=== PATIENT | female | born 1935 | race Caucasian/White ===

== ENCOUNTER 2016-10-17 17:42 | Observation (INO) | payer MEDICARE, OTHER ==
[~2016-10-17] VITALS: Ht 170.2 cm; Wt 93.0 kg
[~2016-10-17 17:42] MED LIST: LORT5TAB PO
[2016-10-17] MEDS ORDERED: MORPHINE SULFATE 4 MG/ML INJ IV PUSH ONE ×2 (17:45→19:30)
[2016-10-17] MEDS ORDERED: SODIUM CHLORIDE 0.9% FLUSH 5 ML FLUSH IVF PRN ×2 (17:45→22:00)
[2016-10-17] MEDS ORDERED: ONDANSETRON HCL 4 MG/2 ML VIAL IVP ONE (17:45)
[2016-10-17 17:56] VITALS: BP 155/74; PULSE 83; RESP 22; TEMP 97.7; O2SAT 98
--- NOTE | 2016-10-17 17:56 | PD ---
HPI Chief Complaint: chest pain Time Seen by Provider: 17:45 Travel History International Travel<30 days: No Contact w/Intl Traveler<30days: No Traveled to known affect area: No History of Present Illness HPI 81-year-old halfway patient from [facility], presents to the ER today because of left upper quadrant and left-sided chest pains that she states is currently a 10 out 10, started on its own at lunch today, radiates to the left flank area. She denies any nausea, shortness of breath, or any other symptoms. She does not know any exacerbating or alleviating factors. She has not been coughing, vomiting, or any other symptoms. She denies previous episodes. Modifying Factors: None Associated Signs & Symptoms: Left upper quadrant and left-sided chest pains Risk Factors: Elderly halfway patient PFSH Past Medical History Arthritis: Yes Asthma: Yes Anxiety: Yes Depression: Yes Cancer: Yes (Skin) Chest Pain: Yes Diminished Hearing: No GERD: Yes Headaches: Yes Hypertension: Yes Neurologic: Yes Parkinson's Disease: Yes Respiratory: Yes Seizures: Yes Past Surgical History Abdominal Surgery: Yes (Gall Bladder) Eye Surgery: Yes (Glaucoma) Hysterectomy: Yes Other Surgery: Yes (Hysterectomy, Gall Bladder) Social History Alcohol Use: No Tobacco Use: No Substance Use: No Allergies-Medications (Allergen,Severity, Reaction): Coded Allergies: Augmentin (Verified Allergy, Severe, nausea, 10/17/16) Demerol (Verified Allergy, Severe, 10/17/16) Keflex (Verified Allergy, Severe, 10/17/16) ANTIHISTAMINE DRUGS (Verified Allergy, Mild, 10/17/16) Muscle Relaxants (Verified Allergy, Mild, 10/17/16) Uncoded Allergies: CODIENE (Allergy, Severe, 03/04/07) MYOCINS (Allergy, Severe, 03/04/07) FLU SHOTS (Allergy, Mild, 03/04/07) Reported Meds & Prescriptions Reported Meds & Active Scripts Active Reported Nitrofurantoin Macrocrystal 100 Mg Cap 100 Mg PO DAILY Cymbalta DR (Duloxetine HCl) 20 Mg Capdr 20 Mg PO DAILY Cymbalta DR (Duloxetine HCl) 30 Mg Capdr 30 Mg PO DAILY Requip (Ropinirole HCl) 0.5 Mg Tab 0.5 Mg PO HS Gabapentin 600 Mg Tab 600 Mg PO HS Gabapentin 300 Mg Cap 300 Mg PO BID Sinemet (Carbidopa-Levodopa) 25-100 Mg Tab 3 Tab PO QID Colace (Docusate Sodium) 100 Mg Cap 100 Mg PO BID Aspirin DR (Aspirin) 81 Mg Tabdr 81 Mg PO DAILY Review of Systems ROS Limitations: Poor Historian Except as stated in HPI: all other systems reviewed are Neg Physical Exam Narrative GENERAL: Well-developed elderly white female patient who is awake, alert, not in acute distress. SKIN: Warm and dry. HEAD: Atraumatic. Normocephalic. EYES: Pupils equal and round. No scleral icterus. No injection or drainage. ENT: No nasal bleeding or discharge. Mucous membranes pink and moist. NECK: Trachea midline. No JVD. CARDIOVASCULAR: Regular rate and rhythm. No murmur appreciated. RESPIRATORY: No accessory muscle use. Clear to auscultation. Breath sounds equal bilaterally. GASTROINTESTINAL: Abdomen soft, left upper quadrant tenderness without guarding or rebound, nondistended. Hepatic and splenic margins not palpable. MUSCULOSKELETAL: No obvious deformities. No clubbing. No cyanosis. No edema. BACK: Left CVA tenderness. No rash. No point tenderness on palpation of the spine. NEUROLOGICAL: Awake and alert. No obvious cranial nerve deficits. Motor grossly within normal limits. Normal speech. PSYCHIATRIC: Appropriate mood and affect; insight and judgment normal. Data Data Last Documented VS Vital Signs Date Time Temp Pulse Resp B/P Pulse Ox O2 Delivery O2 Flow Rate FiO2 10/17/16 18:03 98 Room Air 10/17/16 17:56 97.7 83 22 155/74 Orders Complete Blood Count With Diff (10/17/16 17:45) Comprehensive Metabolic Panel (10/17/16 17:45) Lipase (10/17/16 17:45) Prothrombin Time / Inr (Pt) (10/17/16 17:45) Act Partial Throm Time (Ptt) (10/17/16 17:45) Urinalysis - C+S If Indicated (10/17/16 17:45) Ct Abd/Pel W Iv Contrast(Rout) (10/17/16 17:45) Iv Access Insert/Monitor (10/17/16 17:45) Ecg Monitoring (10/17/16 17:45) Oximetry (10/17/16 17:45) Morphine Inj (Morphine Inj) (10/17/16 17:45) Ondansetron Inj (Zofran Inj) (10/17/16 17:45) Sodium Chloride 0.9% Flush (Ns Flush) (10/17/16 17:45) Electrocardiogram (10/17/16 17:45) Chest, Single Ap (10/17/16 17:45) Hydromorphone Pf Inj (Dilaudid Pf Inj) (10/17/16 19:15) Labs Laboratory Tests Test 10/17/16 18:09 White Blood Count 9.2 TH/MM3 Red Blood Count 4.17 MIL/MM3 Hemoglobin 11.4 GM/DL Hematocrit 35.7 % Mean Corpuscular Volume 85.6 FL Mean Corpuscular Hemoglobin 27.4 PG Mean Corpuscular Hemoglobin 32.0 % Concent Red Cell Distribution Width 14.7 % Platelet Count 381 TH/MM3 Mean Platelet Volume 7.2 FL Neutrophils (%) (Auto) 62.1 % Lymphocytes (%) (Auto) 26.5 % Monocytes (%) (Auto) 6.6 % Eosinophils (%) (Auto) 3.7 % Basophils (%) (Auto) 1.1 % Neutrophils # (Auto) 5.7 TH/MM3 Lymphocytes # (Auto) 2.4 TH/MM3 Monocytes # (Auto) 0.6 TH/MM3 Eosinophils # (Auto) 0.3 TH/MM3 Basophils # (Auto) 0.1 TH/MM3 CBC Comment DIFF FINAL Differential Comment Prothrombin Time 10.3 SEC Prothromb Time International 0.9 RATIO Ratio Activated Partial 25.7 SEC Thromboplast Time Sodium Level 146 MEQ/L Potassium Level 3.3 MEQ/L Chloride Level 108 MEQ/L Carbon Dioxide Level 28.9 MEQ/L Anion Gap 9 MEQ/L Blood Urea Nitrogen 10 MG/DL Creatinine 0.54 MG/DL Estimat Glomerular Filtration 109 ML/MIN Rate Random Glucose 97 MG/DL Calcium Level 8.1 MG/DL Total Bilirubin LESS THAN 0.1 MG/DL Aspartate Amino Transf 13 U/L (AST/SGOT) Alanine Aminotransferase 7 U/L (ALT/SGPT) Alkaline Phosphatase 57 U/L Total Protein 6.0 GM/DL Albumin 3.0 GM/DL Lipase 77 U/L [facility] Medical Decision Making Medical Screen Exam Complete: Yes Emergency Medical Condition: Yes Medical Record Reviewed: Yes Interpretation(s) Laboratory Tests Test 10/17/16 18:09 Hemoglobin 11.4 GM/DL (11.6-15.3) Sodium Level 146 MEQ/L (136-145) Potassium Level 3.3 MEQ/L (3.5-5.1) Chloride Level 108 MEQ/L (98-107) Calcium Level 8.1 MG/DL (8.5-10.1) Total Bilirubin LESS THAN 0.1 MG/DL (0.2-1.0) Aspartate Amino Transf 13 U/L (15-37) (AST/SGOT) Alanine Aminotransferase 7 U/L (10-53) (ALT/SGPT) Total Protein 6.0 GM/DL (6.4-8.2) Albumin 3.0 GM/DL (3.4-5.0) Last 24 hours Impressions Chest X-Ray 10/17/16 2666 Signed Impressions: Service Date/Time: October 18:20 - CONCLUSION: Trace bibasilar atelectasis. Elevated right hemidiaphragm, by report long-term unchanged. No free air seen in the upper abdomen. Carlton Roldan MD Differential Diagnosis Left upper quadrant left-sided chest painspancreatitis versus ACS versus renal colic versus pyelonephritis versus other acute intra-abdominal processes Narrative Course Lab work and CAT scans ordered for the patient for further evaluation. Patient was given pain medications for left upper quadrant abdominal pains. Initial lab work did not indicate any signs of sepsis. Lab work done indicate significant metabolic processes. Chest x-ray did not show acute pulmonary processes. Physician Communication Physician Communication Case is signed out to Dr. Jean at 7 PM awaiting CAT scans. Diagnosis Primary Impression: CHEST PAIN, UNSPECIFIED Admitting Information Admitting Physician Requests: Admit Karen Leyva MD Oct 17, 2016 17:55
[2016-10-17 18:03] VITALS: O2SAT 98
[2016-10-17 18:16] LABS: AUTOMATED NEUTROPHIL # 5.7 TH/MM3 (1.8-7.7); BASOPHIL # 0.1 TH/MM3 (0-0.2); BASOPHIL % 1.1 % (0.0-2.0); EOSINOPHIL # 0.3 TH/MM3 (0-0.4); EOSINOPHIL % 3.7 % (0.0-4.0); HEMATOCRIT 35.7 % (35.0-46.0); HEMO FLAGS DIFF FINAL; LYMPH % 26.5 % (9.0-44.0); LYMPHOCYTE # 2.4 TH/MM3 (1.0-4.8); MEAN CELL VOLUME 85.6 FL (80.0-100.0); MEAN CORPUSCULAR HEMOGLOBIN 27.4 PG (27.0-34.0); MONO % 6.6 % (0.0-8.0); NEUT % 62.1 % (16.0-70.0); PLATELET COUNT 381 TH/MM3 (150-450); RED BLOOD COUNT 4.17 MIL/MM3 (4.00-5.30); RED CELL DISTRIBUTION WIDTH 14.7 % (11.6-17.2); WHITE BLOOD COUNT 9.2 TH/MM3 (4.0-11.0)
[2016-10-17 18:27] LABS: APTT (PATIENT) 25.7 SEC (24.3-30.1); INTERNATIONAL NORMALIZED RATIO 0.9 RATIO; PROTHROMBIN TIME - PATIENT 10.3 SEC (9.8-11.6)
[2016-10-17 18:48] LABS: ALT (GPT) 7 U/L (10-53); ANION GAP 9 MEQ/L (5-15); AST (GOT) 13 U/L (15-37); BICARBONATE 28.9 MEQ/L (21.0-32.0); BLOOD UREA NITROGEN 10 MG/DL (7-18); CHLORIDE 108 MEQ/L (98-107); GLOMERULAR FILTRATION RATE 109 ML/MIN (>89); POTASSIUM 3.3 MEQ/L (3.5-5.1); SODIUM (NA) 146 MEQ/L (136-145)
[2016-10-17 18:50] LABS: ALKALINE PHOSPHATASE 57 U/L (45-117); TOTAL BILIRUBIN ADULT LESS THAN 0.1 MG/DL (0.2-1.0)
--- NOTE | 2016-10-17 18:59 | RADRPT ---
EXAM DATE/TIME: 10/17/2016 18:20 [facility] COMPARISON: No previous studies available for comparison. INDICATIONS : Free air. MEDICAL HISTORY : None. SURGICAL HISTORY : None. ENCOUNTER: Initial ACUITY: 1 day PAIN SCORE: 0/10 LOCATION: Bilateral chest FINDINGS: Trace atelectasis seen at the bases. Elevation of the right hemidiaphragm, reported on the outside fa cility chest x-ray from 2008. No pleural effusion seen. No pneumothorax. Heart size within normal limits. No free air seen in the upper abdomen. CONCLUSION: Trace bibasilar atelectasis. Elevated right hemidiaphragm, by report long-term unchanged. No free air seen in the upper abdomen. Carlton Roldan MD on October 17, 2016 at 18:56 Board Certified Radiologist. This report was verified electronically.
[2016-10-17] MEDS ORDERED: SINE25TA PO (19:10)
[2016-10-17] MEDS ORDERED: ASPI81TA67 PO (19:10)
[2016-10-17] MEDS ORDERED: CYMB30CA PO (19:10)
[2016-10-17] MEDS ORDERED: DULO20 PO (19:10)
[2016-10-17] MEDS ORDERED: ROPI.5 PO (19:10)
[2016-10-17] MEDS ORDERED: COLA100C3 PO ×2 (19:10→19:27)
[2016-10-17] MEDS ORDERED: GABA300C5 PO (19:10)
[2016-10-17] MEDS ORDERED: GABA600T PO (19:10)
[2016-10-17] MEDS ORDERED: NITR1CAP36 PO (19:12)
[2016-10-17] MEDS ORDERED: HYDROmorphone HCL PF 1 MG/ML VIAL IV PUSH ONE (19:15)
[2016-10-17] MEDS ORDERED: PROM25TA5 PO (19:24)
[2016-10-17] MEDS ORDERED: VENTAER INH (19:24)
[2016-10-17] MEDS ORDERED: OMEP40CA2 PO (19:24)
[2016-10-17] MEDS ORDERED: MAPA325T PO (19:24)
[2016-10-17] MEDS ORDERED: MECL1TAB42 PO (19:24)
[2016-10-17] MEDS ORDERED: CHLO1.4S2 MT (19:24)
[2016-10-17] MEDS ORDERED: ALPR.5 PO ×2 (19:24)
[2016-10-17] MEDS ORDERED: LEVE500 PO (19:24)
[2016-10-17] MEDS ORDERED: DULC10SU3 RECTAL (19:24)
[2016-10-17] MEDS ORDERED: MILKSUS PO (19:24)
[2016-10-17] MEDS ORDERED: GUAI100S10 PO (19:24)
[2016-10-17] MEDS ORDERED: XANA1TAB2 PO (19:24)
[2016-10-17] MEDS ORDERED: LOPE2TAB3 PO (19:27)
[2016-10-17] MEDS ORDERED: IPRASOL INH (19:27)
[2016-10-17] MEDS ORDERED: BENA25TA3 PO (19:27)
[2016-10-17] MEDS ORDERED: IOHEXOL 350 MG/ML 10 ML VIAL (for RAD DIAG) IV ONE (19:36)
--- NOTE | 2016-10-17 19:57 | RADRPT ---
EXAM DATE/TIME: 10/17/2016 19:27 [facility] COMPARISON: CHEST SINGLE AP, October 17, 2016, 18:20. INDICATIONS : Left sided chest and abdomen pain. IV CONTRAST: 100 cc Omnipaque 350 (iohexol) IV RADIATION DOSE: 25.26 CTDIvol (mGy) MEDICAL HISTORY : Hypertension. Parkinsons. SURGICAL HISTORY : Hysterectomy. Cholecystectomy. ENCOUNTER: Initial ACUITY: 1 day PAIN SCALE: 8/10 LOCATION: Left chest and abdomen TECHNIQUE: Volumetric scanning was performed using a multi-row detector CT scanner. The data was post processed with a variety of visualization algorithms including full volume maximum intensity projection, multi -planar sliding thin slab reformation, curved planar reformation, and surface rendering techniques. Using automated exposure control and adjustment of the mA and/or kV according to patient size, radiat ion dose was kept as low as reasonably achievable to obtain optimal diagnostic quality images. FINDINGS: Thoracic and abdominal portions of the aorta are non-aneurysmal. No dissection. There is atherosclero tic plaque, mainly mid and distal abdominal portion. No acute abnormality seen of the heart or mediastinum. There is coronary artery calcification. There is elevation of the right hemidiaphragm, mentioned on prior studies back to least 2008. There i s trace atelectasis at the right lung base. No pneumonia seen. No pleural effusion or pneumothorax. CONCLUSION: No acute abnormality of the aorta. No acute cardiopulmonary disease demonstrated. Chronic elevation o f the right hemidiaphragm with trace right base atelectasis. Coronary artery calcification. Carlton webster MD on October 17, 2016 at 19:53 Board Certified Radiologist. This report was verified electronically.
[2016-10-17 20:24] VITALS: BP 153/68; PULSE 69; RESP 12; O2SAT 99
--- NOTE | 2016-10-17 20:30 | PD ---
Physical Exam Date Seen by Provider: Oct 17, 2016 Data Data Last Documented VS Vital Signs Date Time Temp Pulse Resp B/P Pulse Ox O2 Delivery O2 Flow Rate FiO2 10/17/16 20:24 69 12 153/68 99 2 10/17/16 18:03 Room Air 10/17/16 17:56 97.7 Orders Complete Blood Count With Diff (10/17/16 17:45) Comprehensive Metabolic Panel (10/17/16 17:45) Lipase (10/17/16 17:45) Prothrombin Time / Inr (Pt) (10/17/16 17:45) Act Partial Throm Time (Ptt) (10/17/16 17:45) Urinalysis - C+S If Indicated (10/17/16 17:45) Iv Access Insert/Monitor (10/17/16 17:45) Ecg Monitoring (10/17/16 17:45) Oximetry (10/17/16 17:45) Morphine Inj (Morphine Inj) (10/17/16 17:45) Ondansetron Inj (Zofran Inj) (10/17/16 17:45) Sodium Chloride 0.9% Flush (Ns Flush) (10/17/16 17:45) Electrocardiogram (10/17/16 17:45) Chest, Single Ap (10/17/16 17:45) Hydromorphone Pf Inj (Dilaudid Pf Inj) (10/17/16 19:15) Ckmb (Isoenzyme) Profile (10/17/16 19:20) Troponin I (10/17/16 19:20) Morphine Inj (Morphine Inj) (10/17/16 19:30) Cta Thor Abd Aorta W Iv C W3d (10/17/16 19:20) Iohexol 350 Inj (Omnipaque 350 Inj) (10/17/16 19:36) ^ Straight Catheter (10/17/16 20:29) Labs Laboratory Tests Test 10/17/16 18:09 White Blood Count 9.2 TH/MM3 Red Blood Count 4.17 MIL/MM3 Hemoglobin 11.4 GM/DL Hematocrit 35.7 % Mean Corpuscular Volume 85.6 FL Mean Corpuscular Hemoglobin 27.4 PG Mean Corpuscular Hemoglobin 32.0 % Concent Red Cell Distribution Width 14.7 % Platelet Count 381 TH/MM3 Mean Platelet Volume 7.2 FL Neutrophils (%) (Auto) 62.1 % Lymphocytes (%) (Auto) 26.5 % Monocytes (%) (Auto) 6.6 % Eosinophils (%) (Auto) 3.7 % Basophils (%) (Auto) 1.1 % Neutrophils # (Auto) 5.7 TH/MM3 Lymphocytes # (Auto) 2.4 TH/MM3 Monocytes # (Auto) 0.6 TH/MM3 Eosinophils # (Auto) 0.3 TH/MM3 Basophils # (Auto) 0.1 TH/MM3 CBC Comment DIFF FINAL Differential Comment Prothrombin Time 10.3 SEC Prothromb Time International 0.9 RATIO Ratio Activated Partial 25.7 SEC Thromboplast Time Sodium Level 146 MEQ/L Potassium Level 3.3 MEQ/L Chloride Level 108 MEQ/L Carbon Dioxide Level 28.9 MEQ/L Anion Gap 9 MEQ/L Blood Urea Nitrogen 10 MG/DL Creatinine 0.54 MG/DL Estimat Glomerular Filtration 109 ML/MIN Rate Random Glucose 97 MG/DL Calcium Level 8.1 MG/DL Total Bilirubin LESS THAN 0.1 MG/DL Aspartate Amino Transf 13 U/L (AST/SGOT) Alanine Aminotransferase 7 U/L (ALT/SGPT) Alkaline Phosphatase 57 U/L Total Creatine Kinase 37 U/L Troponin I 0.03 NG/ML Total Protein 6.0 GM/DL Albumin 3.0 GM/DL Lipase 77 U/L [facility] Medical Record Reviewed: Yes Supervised Visit with LIZET: No Interpretation(s) EKG: NSR at 84bpm, qt/qtc: 372/413, no acute st or t wave changes Vital Signs Date Time Temp Pulse Resp B/P Pulse Ox O2 Delivery O2 Flow Rate FiO2 10/17/16 18:03 98 Room Air 10/17/16 17:56 97.7 83 22 155/74 98 Laboratory Tests Test 10/17/16 18:09 White Blood Count 9.2 TH/MM3 (4.0-11.0) Red Blood Count 4.17 MIL/MM3 (4.00-5.30) Hemoglobin 11.4 GM/DL (11.6-15.3) Hematocrit 35.7 % (35.0-46.0) Mean Corpuscular Volume 85.6 FL (80.0-100.0) Mean Corpuscular Hemoglobin 27.4 PG (27.0-34.0) Mean Corpuscular Hemoglobin 32.0 % Concent (32.0-36.0) Red Cell Distribution Width 14.7 % (11.6-17.2) Platelet Count 381 TH/MM3 (150-450) Mean Platelet Volume 7.2 FL (7.0-11.0) Neutrophils (%) (Auto) 62.1 % (16.0-70.0) Lymphocytes (%) (Auto) 26.5 % (9.0-44.0) Monocytes (%) (Auto) 6.6 % (0.0-8.0) Eosinophils (%) (Auto) 3.7 % (0.0-4.0) Basophils (%) (Auto) 1.1 % (0.0-2.0) Neutrophils # (Auto) 5.7 TH/MM3 (1.8-7.7) Lymphocytes # (Auto) 2.4 TH/MM3 (1.0-4.8) Monocytes # (Auto) 0.6 TH/MM3 (0-0.9) Eosinophils # (Auto) 0.3 TH/MM3 (0-0.4) Basophils # (Auto) 0.1 TH/MM3 (0-0.2) CBC Comment DIFF FINAL Differential Comment Prothrombin Time 10.3 SEC (9.8-11.6) Prothromb Time International 0.9 RATIO Ratio Activated Partial 25.7 SEC Thromboplast Time (24.3-30.1) Sodium Level 146 MEQ/L (136-145) Potassium Level 3.3 MEQ/L (3.5-5.1) Chloride Level 108 MEQ/L (98-107) Carbon Dioxide Level 28.9 MEQ/L (21.0-32.0) Anion Gap 9 MEQ/L (5-15) Blood Urea Nitrogen 10 MG/DL (7-18) Creatinine 0.54 MG/DL (0.50-1.00) Estimat Glomerular Filtration 109 ML/MIN Rate (>89) Random Glucose 97 MG/DL (74-106) Calcium Level 8.1 MG/DL (8.5-10.1) Total Bilirubin LESS THAN 0.1 MG/DL (0.2-1.0) Aspartate Amino Transf 13 U/L (15-37) (AST/SGOT) Alanine Aminotransferase 7 U/L (10-53) (ALT/SGPT) Alkaline Phosphatase 57 U/L (45-117) Total Creatine Kinase 37 U/L (26-192) Troponin I 0.03 NG/ML (0.02-0.05) Total Protein 6.0 GM/DL (6.4-8.2) Albumin 3.0 GM/DL (3.4-5.0) Lipase 77 U/L (73-393) Last Impressions Aorta CTA 10/17/16 1920 Signed Impressions: Service Date/Time: October 19:27 - CONCLUSION: No acute abnormality of the aorta. No acute cardiopulmonary disease demonstrated. Chronic elevation of the right hemidiaphragm with trace right base atelectasis. Coronary artery calcification. Carlton Roldan MD Chest X-Ray 10/17/16 4396 Signed Impressions: Service Date/Time: , October 17, 2016 18:20 - CONCLUSION: Trace bibasilar atelectasis. Elevated right hemidiaphragm, by report long-term unchanged. No free air seen in the upper abdomen. Carlton Roldan MD Differential Diagnosis acs, arrhythmia, cholecystitis, aortic dissection, gastroenteritis, gastritis, pyelonephritis Narrative Course Please see previous providers chart Patient is an 81-year-old female with hx of dementia, htn, gerd who presents to emergency room from group home for evaluation of chest pain. As per patient, she began to have increased left upper abdomen pain as well as chest pain which radiates to her back. Reports that the pain began around lunchtime today. Patient is unable to describe her pain at this time, patient is holding her left flank. Patient with no fevers or chills, no other complaints at this time. Patient with no nausea or vomiting. cbc: wbc 9.2 hgb: 11.4 hct: 35.7 plt: 381 bmp: sodium 146 potassium 3.3 bun 10 cr 0.54 chloride: 108 trop 0.03 total ck 37 lipase: 77 chest xray: trace bibasilar atelectasis, elevated right hemidiaphragm, no acute changes cta: No acute abnormality of aorta UA: pending Patient re-evaluated, patient comfortable at this time. Diagnosis Primary Impression: CHEST PAIN, UNSPECIFIED Admitting Information Admitting Physician Requests: Observation Juana Jean DO Oct 17, 2016 20:30
[2016-10-17 21:23] LABS: BLOOD, URINE NEG (NEG); COMMENT (UR) CULT NOT INDICATED; CULTURE IF INDICATED CULT NOT INDICATED; GLUCOSE,URINE NEG (NEG); KETONE, URINE NEG (NEG); MUCUS URINE FEW /lpf (OCC); NITRITE,URINE NEG (NEG); PH, URINE 6.5 (5.0-8.5); SQUAMOUS EPITHELIAL CELL URINE <1 /hpf (0-5); URINE COLOR YELLOW (YELLW/STRAW)
[2016-10-17] MEDS ORDERED: POTASSIUM CHLORIDE 25 MEQ EFFERVESCENT TAB PO ONE (21:30)
[2016-10-17 23:21] VITALS: BP 160/71; PULSE 65; RESP 13; O2SAT 98
[2016-10-18 01:10] VITALS: PULSE 72
[2016-10-18 04:38] VITALS: BP 142/67; PULSE 103; RESP 18; TEMP 97.8; O2SAT 97
[2016-10-18 07:59] VITALS: O2SAT 95
[2016-10-18 08:37] VITALS: BP 160/83; PULSE 77; RESP 16; TEMP 97.8; O2SAT 93
[2016-10-18] MEDS ORDERED: SODIUM CHLORIDE 0.9% FLUSH 5 ML FLUSH IVF SCH (09:00)
--- NOTE | 2016-10-18 10:07 | MB ---
cc: ADONIS WIN MD DATE OF CONSULTATION: 10/18/2016 CHIEF COMPLAINT Chest pain. HISTORY OF PRESENT ILLNESS Fernanda Romero is an 81-year-old female patient of mine who resides at [facility]. She has had a generalized decline over the past year. She has had some significant behaviors at the nursing facility including throwing herself on the ground per the nursing staff and recurrent somatic complaints. Yesterday I was called by the nurse at the facility for acute onset of chest pain. The nurse had given her two nitroglycerin and was calling to report that she appeared very ill. Nitroglycerin did not relieve the chest pain and she states that the pain was radiating into her left arm. She felt weak and was tremulous and the patient was complaining of shortness of breath. I asked the nurse to send the patient to the [facility] and for them to call me. The patient was seen in the [facility]. I was called for consultation. The patient is in obvious distress. She is shaking and is complaining of weakness and left side chest pain. She becomes tearful upon questioning her. LABORATORY DATA Hemoglobin 11.7, CBC otherwise normal. Potassium 3.3, sodium 146. LFTs are normal. INR 0.9. Urinalysis shows protein, specific gravity greater than 1.05, rare yeast. ALLERGIES 1. AUGMENTIN. 2. DEMEROL. 3. KEFLEX. 4. ANTIHISTAMINES. 5. MUSCLE RELAXANTS. 6. CODEINE. 7. MYCINS. 8. FLU SHOTS MEDICATIONS Home medications are: 1. Macrobid. 2. Cymbalta. 3. Requip. 4. Gabapentin. 5. Sinemet. 6. Colace. 7. Aspirin 81 mg daily. PAST MEDICAL HISTORY 1. Asthma. 2. Anxiety. 3. Depression. 4. Hypertension. 5. Parkinson's. 6. Seizures. 7. Headaches. 8. Personality disorder NOS. PAST SURGICAL HISTORY 1. Cholecystectomy. 2. Glaucoma surgery. 3. Hysterectomy. SOCIAL HISTORY No alcohol, tobacco or illicit drug usage. She resides in long-term care at the [facility]. FAMILY HISTORY She reports her father with cardiac disease and mother with dementia. She is a questionable historian. REVIEW OF SYSTEMS Weakness, tremors, chest pain, nausea, abdominal pain coughing. Negative 14-point review of systems otherwise. IMAGING DATA Aortic CTA: No acute abnormality. Right hemidiaphragm elevation. Coronary artery calcification. Chest x-ray shows atelectasis. PHYSICAL EXAMINATION VITAL SIGNS: Temperature 97.8, pulse 103, respirations 18, blood pressure 160/83, pulse ox 93%. ASSESSMENT 1. Chest pain. 2. Abdominal pain. 3. Parkinson's. 4. Hypokalemia. 5. Hypernatremia. 6. Dehydration. 7. Hypertension. 8. Asthma. 9. Atelectasis. PLAN 1. Observation admission to the chest pain unit. Cardiac enzymes are negative x3. Cardiology is going to be seeing the patient. 2. Half normal saline with potassium IV fluids. 3. NPO. 4. Telemetry. 5. The patient appears to be clear to go back to the [facility] facility. It appears that her abdominal pain is actually due to the atelectasis in the left base. There are initial crackles on deep respirations that quickly clear with deep breathing. The patient has a history of somatoform issues and is always voicing not wanting to have much aggressive care. 6. Will leave the disposition up to cardiology. Adonis Win MD RP/CHRIS /9:33 AM /9:45 AM
[2016-10-18 10:19] VITALS: PULSE 70
--- NOTE | 2016-10-18 11:41 | HHI.DCPOC ---
Discharge Care Plan Diagnosis: (1) Chest pain, atypical Goals to Promote Your Health * To prevent worsening of your condition and complications * To maintain your health at the optimal level Directions to Meet Your Goals Take your medications as prescribed Follow your dietary instruction Follow activity as directed Keep your appointments as scheduled Take your immunizations and boosters as scheduled If your symptoms worsen call your PCP, if no PCP go to Urgent Care Center or Emergency Room Smoking is Dangerous to Your Health. Avoid second hand smoke Call the 24-hour hour crisis hotline for domestic abuse at Shaun Paz Oct 18, 2016 11:41
[2016-10-18] MEDS ORDERED: ALPRAZolam 0.5 MG TAB PO PRN (11:45)
[2016-10-18] MEDS ORDERED: MECLIZINE HCL 25 MG TAB PO PRN (11:45)
--- NOTE | 2016-10-18 11:54 | HHI.HP ---
[facility] Primary Care Physician Adonis Verdin MD Chief Complaint Chest pain History of Present Illness This is an 81-year-old female that presents to the ED from [facility] with a complaint of discomfort in her chest. When she states that she points to her epigastric region. She really does not know how long the lasted but states he came in waves and was sharp. He was short of breath and states she is chronically short of breath. No nausea or diaphoresis. She cannot recall history of heart disease but states that her memory is not that good and that her healthcare surrogates. Review of Systems General: Patient denies fevers, chills recent, and recent travel HEENT: Patient denies headache, sore throat, difficulty swallowing. Cardiovascular: Has the chest discomfort as mentioned above. Denies sensation of heart beating rapidly or irregularly. No syncope. Denies diaphoresis. Respiratory: Patient is chronically short of breath and has notany difference recently. Denies inspirational chest discomfort. Patient states she has a chronic cough. This has been nonproductive. GI: Patient denies nausea, vomiting, diarrhea, abdominal pain, bloody stools. Musculoskeletal: Patient denies joint pain or edema. Denies calf pain or edema. Neurovascular: Patient denies numbness, tingling, weakness in extremities. Denies headache. Endocrine: Denies polyuria and polydipsia. Hematologic: Denies easy bruising. Skin: Denies rash or itching. Past Family Social History Allergies: Coded Allergies: Augmentin (Verified Allergy, Severe, nausea, 10/17/16) Demerol (Verified Allergy, Severe, 10/17/16) Keflex (Verified Allergy, Severe, 10/17/16) ANTIHISTAMINE DRUGS (Verified Allergy, Mild, 10/17/16) Muscle Relaxants (Verified Allergy, Mild, 10/17/16) Uncoded Allergies: CODIENE (Allergy, Severe, 03/04/07) MYOCINS (Allergy, Severe, 03/04/07) FLU SHOTS (Allergy, Mild, 03/04/07) Past Medical History Hypertension, hyperlipidemia, GERD, vertigo, Parkinson's disease, memory loss. Past Surgical History Hysterectomy, cholecystectomy. Reported Medications Reported Meds & Active Scripts Active Reported Duoneb (Ipratropium-Albuterol Neb) 0.5-2.5 Mg/3 Ml Neb 1 Nebule INH Q6HR NEB PRN Benadryl Allergy (Diphenhydramine HCl) 25 Mg Tab 25 Mg PO Q6H PRN Loperamide (Loperamide HCl) 2 Mg Tab 2 Mg PO Q4HR PRN One tablet after each loose stool. Not to exceed 8 tablets per day. Colace (Docusate Sodium) 100 Mg Cap 100 Mg PO BID PRN Ventolin Hfa 18 GM Inh (Albuterol Sulfate) 90 Mcg/Act Aer 2 Puff INH Q4HR PRN Phenergan (Promethazine HCl) 25 Mg Tab 25 Mg PO Q6H PRN Meclizine 25 (Meclizine HCl) 25 Mg Tab 25 Mg PO Q6HR PRN Guaifenesin 100 Mg/5 Ml Syp 100 Mg PO Q4HR PRN Xanax (Alprazolam) 0.5 Mg Tab 0.5 Mg PO Q6H PRN Chloraseptic (Phenol (Antiseptic)) 1.4 % Spr 2 [place] Q2HR PRN Mapap (Acetaminophen) 325 Mg Tab 650 Mg PO Q4HR PRN Dulcolax Supp (Bisacodyl) 10 Mg Supp 10 Mg RECTAL HS PRN Milk of Magnesia Liq (Magnesium Hydroxide) 400 Mg/5 Ml Susp 30 Ml PO HS PRN Xanax (Alprazolam) 1 Mg Tab 1 Mg PO HS Xanax (Alprazolam) 0.5 Mg Tab 0.5 Mg PO BID Omeprazole 40 Mg Cap 40 Mg PO DAILY@1600 Keppra (Levetiracetam) 500 Mg Tab 500 Mg PO BID Nitrofurantoin Macrocrystal 100 Mg Cap 100 Mg PO DAILY Cymbalta DR (Duloxetine HCl) 20 Mg Capdr 20 Mg PO DAILY Cymbalta DR (Duloxetine HCl) 30 Mg Capdr 30 Mg PO DAILY Requip (Ropinirole HCl) 0.5 Mg Tab 0.5 Mg PO HS Gabapentin 600 Mg Tab 600 Mg PO HS Gabapentin 300 Mg Cap 300 Mg PO BID Sinemet (Carbidopa-Levodopa) 25-100 Mg Tab 3 Tab PO QID Colace (Docusate Sodium) 100 Mg Cap 100 Mg PO BID Aspirin DR (Aspirin) 81 Mg Tabdr 81 Mg PO DAILY Active Ordered Medications Current Medications Medications (Trade) Dose Ordered Sig/Akila Route Start Time Stop Time Status Last Admin (NS Flush) 2 ml UNSCH PRN IVF 10/17/16 17:45 (NS Flush) 2 ml UNSCH PRN IVF 10/17/16 22:00 (NS Flush) 2 ml BID IVF 10/18/16 09:00 10/18/16 09:59 (Xanax) 0.5 mg Q6H PRN PO 10/18/16 11:45 UNV (Xanax) 1 mg HS PO 10/18/16 21:00 UNV (Ecotrin Ec) 81 mg DAILY PO 10/19/16 09:00 UNV (Sinemet 25-100 Mg) 3 tab QID PO 10/18/16 13:00 UNV (Cymbalta Dr) 20 mg DAILY PO 10/19/16 09:00 UNV (Cymbalta Dr) 30 mg DAILY PO 10/19/16 09:00 UNV (Neurontin) 300 mg BID PO 10/18/16 21:00 UNV (Neurontin) 600 mg HS PO 10/18/16 21:00 UNV (Keppra) 500 mg BID PO 10/18/16 21:00 UNV (Antivert) 25 mg Q6HR PRN PO 10/18/16 11:45 UNV (Requip) 0.5 mg HS PO 10/18/16 21:00 UNV Non-Formulary Medication 40 mg DAILY@1600 PO 10/18/16 16:00 UNV Family History She is not aware of her family medical history. Social History Patient does not smoke, drink alcohol, or use illicit drugs. She lives at [facility]. Physical Exam Vital Signs Vital Signs Date Time Temp Pulse Resp B/P Pulse Ox O2 Delivery O2 Flow Rate FiO2 10/18/16 10:19 70 10/18/16 08:37 97.8 77 16 160/83 93 10/18/16 07:59 95 Nasal Cannula 2.00 10/18/16 04:38 97.8 103 18 142/67 97 10/18/16 01:10 72 10/17/16 23:21 65 13 160/71 98 2 10/17/16 20:24 69 12 153/68 99 2 10/17/16 18:03 98 Room Air 10/17/16 17:56 97.7 83 22 155/74 98 Physical Exam GENERAL: This is a well-nourished, well-developed patient, in no apparent distress. Patient speaks in clear complete sentences. Patient is pleasant. HEENT: Head is atraumatic and normocephalic. Neck is supple without lymphadenopathy and trachea is midline. No JVD or carotid bruits. CARDIOVASCULAR: Regular rate and rhythm without murmurs, gallops, or rubs. RESPIRATORY: There is tender some palpating along the inferior aspect of the sternum as well as left lateral chest wall. Clear to auscultation. Breath sounds equal bilaterally. No wheezes, rales, or rhonchi. No use of accessory muscles. GASTROINTESTINAL: Abdomen is nontender, nondistended. Abdomen soft. No obvious pulsatile mass or bruit. No CVA tenderness. Strong femoral pulses bilaterally. Normal bowel sounds in all quadrants. MUSCULOSKELETAL: Patient is moving upper and lower extremities freely. No calf tenderness or edema, no Homans sign. Strong pulses in upper and lower extremities. NEUROLOGICAL: Patient is alert and oriented. Cranial nerves 2-12 are grossly intact. No focal deficits and speech is clear. SKIN: No rash and turgor is normal. Laboratory Laboratory Tests Test 10/17/16 10/17/16 10/17/16 10/18/16 18:09 21:00 22:15 00:15 White Blood Count 9.2 Red Blood Count 4.17 Hemoglobin 11.4 Hematocrit 35.7 Mean Corpuscular Volume 85.6 Mean Corpuscular Hemoglobin 27.4 Mean Corpuscular Hemoglobin 32.0 Concent Red Cell Distribution Width 14.7 Platelet Count 381 Mean Platelet Volume 7.2 Neutrophils (%) (Auto) 62.1 Lymphocytes (%) (Auto) 26.5 Monocytes (%) (Auto) 6.6 Eosinophils (%) (Auto) 3.7 Basophils (%) (Auto) 1.1 Neutrophils # (Auto) 5.7 Lymphocytes # (Auto) 2.4 Monocytes # (Auto) 0.6 Eosinophils # (Auto) 0.3 Basophils # (Auto) 0.1 CBC Comment DIFF FINAL Differential Comment Prothrombin Time 10.3 Prothromb Time International 0.9 Ratio Activated Partial 25.7 Thromboplast Time Sodium Level 146 Potassium Level 3.3 Chloride Level 108 Carbon Dioxide Level 28.9 Anion Gap 9 Blood Urea Nitrogen 10 Creatinine 0.54 Estimat Glomerular Filtration 109 Rate Random Glucose 97 Calcium Level 8.1 Total Bilirubin LESS THAN 0.1 Aspartate Amino Transf 13 (AST/SGOT) Alanine Aminotransferase 7 (ALT/SGPT) Alkaline Phosphatase 57 Total Creatine Kinase 37 36 37 Troponin I 0.03 0.03 0.03 Total Protein 6.0 Albumin 3.0 Lipase 77 Urine Color YELLOW Urine Turbidity CLEAR Urine pH 6.5 Urine Specific [place] GREATER THAN 1.050 Urine Protein 30 Urine Glucose (UA) NEG Urine Ketones NEG Urine Occult Blood NEG Urine Nitrite NEG Urine Bilirubin NEG Urine Urobilinogen LESS THAN 2.0 Urine Leukocyte Esterase NEG Urine RBC 1 Urine WBC 3 Urine Squamous Epithelial <1 Cells Urine Mucus FEW Urine Yeast (Budding) RARE Microscopic Urinalysis Comment CULT NOT INDICATED Result Diagram: 10/17/16 1809 10/17/16 180 Imaging Last 48 hours Impressions Aorta CTA 10/17/16 192 Signed Impressions: Service Date/Time: October 19:27 - CONCLUSION: No acute abnormality of the aorta. No acute cardiopulmonary disease demonstrated. Chronic elevation of the right hemidiaphragm with trace right base atelectasis. Coronary artery calcification. Carltno Roldan MD Chest X-Ray 10/17/16 1880 Signed Impressions: Service Date/Time: October 18:20 - CONCLUSION: Trace bibasilar atelectasis. Elevated right hemidiaphragm, by report long-term unchanged. No free air seen in the upper abdomen. Carlton Roldan MD Course EKGs have sinus rhythm without significant ST segment depressions or elevations. Assessment and Plan Assessment and Plan * Atypical chest pain: Patient had serial cardiac enzymes and EKGs for ruling out purposes. She was evaluated by Dr. Turner cardiology and the chest and center. Her symptoms are atypical in nature. Dr. milian discuss this with the patient and her 2 daughters. The be no further cardiac workup at this time. She should follow-up with her primary care physician. * Hypokalemia: Patient was given potassium supplementation. Shaun Paz Oct 18, 2016 11:54
[2016-10-18] MEDS ORDERED: CARBIDOPA/LEVODOPA 25 MG/100 MG TAB PO SCH (13:00)
--- NOTE | 2016-10-18 14:21 | EKG ---
Date Performed: 10/18/2016 Time Performed: 04:30:55 PTAGE: 81 years EKG: Sinus rhythm NORMAL ECG PREVIOUS TRACING : 10/17/2016 23.51 Since previous tracing, no significant change noted DOCTOR: Adonis Turner Interpretating Date/Time 10/18/2016 14:18:48
--- NOTE | 2016-10-18 14:23 | EKG ---
Date Performed: 10/17/2016 Time Performed: 23:51:19 PTAGE: 81 years EKG: Sinus rhythm LOW QRS VOLTAGE IN PRECORDIAL LEADS BORDERLINE ECG PREVIOUS TRACING : 10/17/2016 22.20 DOCTOR: Adonis Turner Interpretating Date/Time 10/18/2016 14:22:35
--- NOTE | 2016-10-18 14:23 | EKG ---
Date Performed: 10/17/2016 Time Performed: 22:20:12 PTAGE: 81 years EKG: Sinus rhythm NORMAL ECG PREVIOUS TRACING : 10/17/2016 17.53 Since previous tracing, no significant change noted DOCTOR: Adonis Turner Interpretating Date/Time 10/18/2016 14:22:55
--- NOTE | 2016-10-18 14:26 | EKG ---
Date Performed: 10/17/2016 Time Performed: 17:53:04 PTAGE: 81 years EKG: Sinus rhythm NORMAL ECG PREVIOUS TRACING : 02/22/2009 17.16 Since previous tracing, no significant change noted DOCTOR: Adonis Turner Interpretating Date/Time 10/18/2016 14:25:51
[2016-10-18] MEDS ORDERED: NON-FORMULARY DRUG (Omeprazole 40 MG) PO SCH (16:00)
[2016-10-18] MEDS ORDERED: GABAPENTIN 300 MG CAP PO SCH ×2 (21:00)
[2016-10-18] MEDS ORDERED: ALPRAZolam 1 MG TAB PO SCH (21:00)
[2016-10-18] MEDS ORDERED: levETIRAcetam 500 MG TAB PO SCH (21:00)
[2016-10-19] MEDS ORDERED: DULoxetine HCl DR 20 MG CAP PO SCH (09:00)
[2016-10-19] MEDS ORDERED: ASPIRIN EC 81 MG TABEC PO SCH (09:00)
[2016-10-19] MEDS ORDERED: DULoxetine HCl DR 30 MG CAP PO SCH (09:00)
== END 2016-10-18 12:16 | disposition home or self-care (01) ==
LOC: NEPC 17:42 → NEDA 21:30 → NEPHCDU 23:30
PROVIDERS: ADMIT Internal Medicine Interventional Cardiology; ATTEND Internal Medicine Interventional Cardiology
DX: R07.89 Other chest pain (principal); E87.6 Hypokalemia; M19.90 Unspecified osteoarthritis, unspecified site; J45.909 Unspecified asthma, uncomplicated; F32.9 Major depressive disorder, single episode, unspecified; F41.9 Anxiety disorder, unspecified; Z85.828 Personal history of other malignant neoplasm of skin; K21.9 Gastro-esophageal reflux disease without esophagitis; G20 Parkinson's disease; I10 Essential (primary) hypertension; Z79.82 Long term (current) use of aspirin; Z79.51 Long term (current) use of inhaled steroids; Z88.1 Allergy status to other antibiotic agents; Z88.8 Allergy status to other drugs, medicaments and biological substances; Z88.7 Allergy status to serum and vaccine; Z88.5 Allergy status to narcotic agent
CPT/HCPCS: 71010; 71275; 74174; 80053; 81001; 82550; 83690; 84484; 85025; 85610; 85730; 93005; 96374; 96375; 99285; G0378; J1170; J2270; J2405; Q9967

== ENCOUNTER 2016-10-21 13:30 | Inpatient (IN) | payer MEDICARE, OTHER ==
[~2016-10-21] VITALS: Ht 160 cm; Wt 88.9 kg
[~2016-10-21 13:30] MED LIST changes: +ALPR.5 PO; +ASPI81TA67 PO; +BENA25TA3 PO; +CHLO1.4S2 MT; +COLA100C3 PO; +CYMB30CA PO; +DULC10SU3 RECTAL; +DULO20 PO; +GABA300C5 PO; +GABA600T PO; +GUAI100S10 PO; +IPRASOL INH; +LEVE500 PO; +LOPE2TAB3 PO; -LORT5TAB PO; +MAPA325T PO; +MECL1TAB42 PO; +MILKSUS PO; +NITR1CAP36 PO; +OMEP40CA2 PO; +PROM25TA5 PO; +ROPI.5 PO; +SINE25TA PO; +VENTAER INH; +XANA1TAB2 PO
[2016-10-21 16:35] VITALS: BP 151/72; PULSE 86; RESP 16; TEMP 98; O2SAT 97
[2016-10-21 16:55] LABS: AUTOMATED NEUTROPHIL # 5.1 TH/MM3 (1.8-7.7); BASOPHIL # 0.1 TH/MM3 (0-0.2); EOSINOPHIL # 0.3 TH/MM3 (0-0.4); HEMATOCRIT 39.6 % (35.0-46.0); HEMO FLAGS DIFF FINAL; LYMPH % 29.2 % (9.0-44.0); LYMPHOCYTE # 2.5 TH/MM3 (1.0-4.8); MEAN CORPUSCULAR HEMOGLOBIN 27.4 PG (27.0-34.0); MEAN CORPUSCULAR HGB CONC 32.3 % (32.0-36.0); MONO % 7.1 % (0.0-8.0); NEUT % 58.7 % (16.0-70.0); PLATELET COUNT 454 TH/MM3 (150-450); RED BLOOD COUNT 4.66 MIL/MM3 (4.00-5.30); RED CELL DISTRIBUTION WIDTH 14.5 % (11.6-17.2); WHITE BLOOD COUNT 8.7 TH/MM3 (4.0-11.0)
--- NOTE | 2016-10-21 16:56 | RADRPT ---
EXAM DATE/TIME: 10/21/2016 16:33 [facility] COMPARISON: CHEST SINGLE AP, October 17, 2016, 18:20. INDICATIONS : Chest pain. MEDICAL HISTORY : Hypercholesterolemia. Hypertension. Parkinsons. Asthma. SURGICAL HISTORY : Cardiac cath. Hysterectomy. Cholecystectomy ENCOUNTER: Initial ACUITY: 2 days PAIN SCORE: 5/10 LOCATION: Bilateral chest FINDINGS: A single view of the chest demonstrates stable elevation of right hemidiaphragm with minimal bibasila r atelectatic changes. This actually show some interval improvement on the left. No confluent infiltr ate or effusion. Heart size is normal. Degenerative spurring of the dorsal spine. CONCLUSION: 1. Stable elevation of the right hemidiaphragm with minimal bibasilar atelectatic changes. 2. No confluent infiltrate. Hermelindo Espitia MD on October 21, 2016 at 16:53 Board Certified Radiologist. This report was verified electronically.
--- NOTE | 2016-10-21 17:02 | RADRPT ---
EXAM DATE/TIME: 10/21/2016 16:49 [facility] COMPARISON: No previous studies available for comparison. INDICATIONS : Altered mental status. RADIATION DOSE: 40.53 CTDIvol (mGy) MEDICAL HISTORY : Stroke. Parkinsons. Seizures. SURGICAL HISTORY : None. ENCOUNTER: Initial ACUITY: 1 day PAIN SCALE: Non-responsive LOCATION: cranial TECHNIQUE: Multiple contiguous axial images were obtained of the head. Using automated exposure control and adj ustment of the mA and/or kV according to patient size, radiation dose was kept as low as reasonably a chievable to obtain optimal diagnostic quality images. FINDINGS: CEREBRUM: The ventricles are normal for age. No evidence of midline shift, mass lesion, hemorrhage or acute in farction. No extra-axial fluid collections are seen. POSTERIOR FOSSA: The cerebellum and brainstem are intact. The 4th ventricle is midline. The cerebellopontine angle i s unremarkable. EXTRACRANIAL: The visualized portion of the orbits is intact. SKULL: The calvaria is intact. No evidence of skull fracture. CONCLUSION: No acute intracranial process. Hermelindo Espitia MD on October 21, 2016 at 16:59 Board Certified Radiologist. This report was verified electronically.
[2016-10-21 17:11] LABS: ALT (GPT) 7 U/L (10-53); ANION GAP 10 MEQ/L (5-15); AST (GOT) 19 U/L (15-37); BICARBONATE 25.6 MEQ/L (21.0-32.0); BLOOD UREA NITROGEN 8 MG/DL (7-18); CHLORIDE 108 MEQ/L (98-107); GLOMERULAR FILTRATION RATE 93 ML/MIN (>89); POTASSIUM 3.4 MEQ/L (3.5-5.1); SODIUM (NA) 144 MEQ/L (136-145)
[2016-10-21 17:12] LABS: ALKALINE PHOSPHATASE 66 U/L (45-117); TOTAL BILIRUBIN ADULT 0.5 MG/DL (0.2-1.0)
[2016-10-21] MEDS ORDERED: LORazepam 2 MG/ML VIAL IV PUSH ONE ×2 (17:15→19:00)
--- NOTE | 2016-10-21 17:33 | PD ---
HPI Chief Complaint: Psychiatric Symptoms Time Seen by Provider: 17:27 Travel History International Travel<30 days: No Contact w/Intl Traveler<30days: No Traveled to known affect area: No History of Present Illness HPI 81-year-old female that presents to the ED for evaluation of psych. Patient has a history of dementia and behavioral issues secondary to this. Patient apparently lives at an assisted living facility and they Paul acted her because of her increasing agitation. Apparently patient is aggressive towards staff and acting more psychotic. Patient is a poor historian doesn't really provide much information. She was here just a couple days ago for chest pain and had a workup that showed no sign of acute disease. Per my evaluation patient denies any complaint other than possible recent fall and hit her head. She cannot really tell me when this happened. Again she is not a good historian. Denies any suicidal or homicidal ideation. Per records patient apparently was making threats to her life. Again history is limited secondary to the patient's mental status. PFSH Past Medical History Hx Anticoagulant Therapy: Yes (BABY ASPIRIN DAILY ) Arthritis: Yes Asthma: Yes Anxiety: Yes Depression: Yes Cancer: Yes (Skin) Cardiac Catheterization: Yes Cardiovascular Problems: Yes High Cholesterol: Yes Chest Pain: Yes Cerebrovascular Accident: Yes (TIA) Diabetes: No Diminished Hearing: No Gastrointestinal Disorders: No GERD: Yes Headaches: Yes Heparin Induced Thrombocytopen: No Hypertension: Yes Neurologic: Yes Parkinson's Disease: Yes Respiratory: Yes Immunizations Current: Yes Seizures: Yes Tetanus Vaccination: > 5 Years Influenza Vaccination: No Past Surgical History Abdominal Surgery: Yes (Gall Bladder) Eye Surgery: Yes (Glaucoma) Hysterectomy: Yes Other Surgery: Yes (Hysterectomy, Gall Bladder) Social History Alcohol Use: No Tobacco Use: No Substance Use: No Allergies-Medications (Allergen,Severity, Reaction): Coded Allergies: Augmentin (Verified Allergy, Severe, nausea, 10/21/16) Demerol (Verified Allergy, Severe, 10/21/16) Keflex (Verified Allergy, Severe, 10/21/16) ANTIHISTAMINE DRUGS (Verified Allergy, Mild, 10/21/16) Muscle Relaxants (Verified Allergy, Mild, 10/21/16) Uncoded Allergies: CODIENE (Allergy, Severe, 03/04/07) MYOCINS (Allergy, Severe, 03/04/07) FLU SHOTS (Allergy, Mild, 03/04/07) Reported Meds & Prescriptions Reported Meds & Active Scripts Active Reported Duoneb (Ipratropium-Albuterol Neb) 0.5-2.5 Mg/3 Ml Neb 1 Nebule INH Q6HR NEB PRN Benadryl Allergy (Diphenhydramine HCl) 25 Mg Tab 25 Mg PO Q6H PRN Loperamide (Loperamide HCl) 2 Mg Tab 2 Mg PO Q4HR PRN One tablet after each loose stool. Not to exceed 8 tablets per day. Ventolin Hfa 18 GM Inh (Albuterol Sulfate) 90 Mcg/Act Aer 2 Puff INH Q4HR PRN Phenergan (Promethazine HCl) 25 Mg Tab 25 Mg PO Q6H PRN Meclizine 25 (Meclizine HCl) 25 Mg Tab 25 Mg PO Q6HR PRN Guaifenesin 100 Mg/5 Ml Syp 100 Mg PO Q4HR PRN Xanax (Alprazolam) 0.5 Mg Tab 0.5 Mg PO Q6H PRN Chloraseptic (Phenol (Antiseptic)) 1.4 % Spr 2 [place] MT Q2HR PRN Mapap (Acetaminophen) 325 Mg Tab 650 Mg PO Q4HR PRN Dulcolax Supp (Bisacodyl) 10 Mg Supp 10 Mg RECTAL HS PRN Milk of Magnesia Liq (Magnesium Hydroxide) 400 Mg/5 Ml Susp 30 Ml PO HS PRN Xanax (Alprazolam) 1 Mg Tab 1 Mg PO HS Xanax (Alprazolam) 0.5 Mg Tab 0.5 Mg PO BID Omeprazole 40 Mg Cap 40 Mg PO DAILY@1600 Keppra (Levetiracetam) 500 Mg Tab 500 Mg PO BID Nitrofurantoin Macrocrystal 100 Mg Cap 100 Mg PO DAILY Cymbalta DR (Duloxetine HCl) 20 Mg Capdr 20 Mg PO DAILY Cymbalta DR (Duloxetine HCl) 30 Mg Capdr 30 Mg PO DAILY Requip (Ropinirole HCl) 0.5 Mg Tab 0.5 Mg PO HS Gabapentin 600 Mg Tab 600 Mg PO HS Gabapentin 300 Mg Cap 300 Mg PO BID Sinemet (Carbidopa-Levodopa) 25-100 Mg Tab 3 Tab PO QID Colace (Docusate Sodium) 100 Mg Cap 100 Mg PO BID Aspirin DR (Aspirin) 81 Mg Tabdr 81 Mg PO DAILY Review of Systems ROS Limitations: Poor Historian Except as stated in HPI: all other systems reviewed are Neg Physical Exam Narrative GENERAL: SKIN: Warm and dry. HEAD: Atraumatic. Normocephalic. EYES: Pupils equal and round. No scleral icterus. No injection or drainage. ENT: No nasal bleeding or discharge. Mucous membranes pink and moist. Tongue is midline. No uvula deviation. NECK: Trachea midline. No JVD. CARDIOVASCULAR: Regular rate and rhythm. No murmurs, S3, S4. RESPIRATORY: No accessory muscle use. Clear to auscultation. Breath sounds equal bilaterally. GASTROINTESTINAL: Abdomen soft, non-tender, nondistended. Hepatic and splenic margins not palpable. MUSCULOSKELETAL: Extremities without clubbing, cyanosis, or edema. No obvious deformities. Full range of motion of the upper and lower extremities bilaterally. 2+ pulses bilaterally. NEUROLOGICAL: Awake and alert. No obvious cranial nerve deficits. Motor grossly within normal limits. Five out of 5 muscle strength in the arms and legs. Normal speech. PSYCHIATRIC: Demented and anxious mood and affect; insight and judgment not present at this time Data Data Last Documented VS Vital Signs Date Time Temp Pulse Resp B/P Pulse Ox O2 Delivery O2 Flow Rate FiO2 10/21/16 16:35 98.0 86 16 151/72 97 Orders Complete Blood Count With Diff (10/21/16 16:18) Comprehensive Metabolic Panel (10/21/16 16:18) Urinalysis - C+S If Indicated (10/21/16 16:18) Psych Screen (10/21/16 16:18) Ct Brain W/O Iv Contrast(Rout) (10/21/16 ) Chest, Single Ap (10/21/16 ) Cath For Specimen (10/21/16 17:15) Lorazepam Inj (Ativan Inj) (10/21/16 17:15) ^ Sitter (10/21/16 18:01) Haloperidol Inj (Haldol Inj) (10/21/16 18:15) Restraints Non-Violent ADOLFO.Q3H (10/21/16 18:39) Lorazepam Inj (Ativan Inj) (10/21/16 19:00) Urine Culture (10/21/16 19:10) Ciprofloxacin 200 Mg Premix (Cipro 200 M (10/21/16 19:45) Admit Order (Ed Use Only) (10/21/16 19:40) Labs Laboratory Tests Test 10/21/16 10/21/16 16:35 19:10 White Blood Count 8.7 TH/MM3 Red Blood Count 4.66 MIL/MM3 Hemoglobin 12.8 GM/DL Hematocrit 39.6 % Mean Corpuscular Volume 85.0 FL Mean Corpuscular Hemoglobin 27.4 PG Mean Corpuscular Hemoglobin 32.3 % Concent Red Cell Distribution Width 14.5 % Platelet Count 454 TH/MM3 Mean Platelet Volume 7.5 FL Neutrophils (%) (Auto) 58.7 % Lymphocytes (%) (Auto) 29.2 % Monocytes (%) (Auto) 7.1 % Eosinophils (%) (Auto) 4.0 % Basophils (%) (Auto) 1.0 % Neutrophils # (Auto) 5.1 TH/MM3 Lymphocytes # (Auto) 2.5 TH/MM3 Monocytes # (Auto) 0.6 TH/MM3 Eosinophils # (Auto) 0.3 TH/MM3 Basophils # (Auto) 0.1 TH/MM3 CBC Comment DIFF FINAL Differential Comment Sodium Level 144 MEQ/L Potassium Level 3.4 MEQ/L Chloride Level 108 MEQ/L Carbon Dioxide Level 25.6 MEQ/L Anion Gap 10 MEQ/L Blood Urea Nitrogen 8 MG/DL Creatinine 0.62 MG/DL Estimat Glomerular Filtration 93 ML/MIN Rate Random Glucose 109 MG/DL Calcium Level 9.3 MG/DL Total Bilirubin 0.5 MG/DL Aspartate Amino Transf 19 U/L (AST/SGOT) Alanine Aminotransferase 7 U/L (ALT/SGPT) Alkaline Phosphatase 66 U/L Total Protein 7.3 GM/DL Albumin 3.6 GM/DL Urine Color LIGHT-BROWN Urine Turbidity HAZY Urine pH 6.0 Urine Specific [place] 1.031 Urine Protein 30 mg/dL Urine Glucose (UA) NEG mg/dL Urine Ketones 10 mg/dL Urine Occult Blood TRACE Urine Nitrite NEG Urine Bilirubin NEG Urine Urobilinogen 2.0 MG/DL Urine Leukocyte Esterase LARGE Urine RBC 10 /hpf Urine WBC 136 /hpf Urine WBC Clumps MANY Urine Squamous Epithelial 5 /hpf Cells Urine Mucus FEW /lpf Microscopic Urinalysis Comment CULTURE INDICATED MDM Medical Decision Making Medical Screen Exam Complete: Yes Emergency Medical Condition: Yes Medical Record Reviewed: Yes Interpretation(s) CBC & BMP Diagram 10/21/16 16:35 Last Impressions Chest X-Ray 10/21/16 0000 Signed Impressions: Service Date/Time: Friday, October 21, 2016 16:33 - CONCLUSION: 1. Stable elevation of the right hemidiaphragm with minimal bibasilar atelectatic changes. 2. No confluent infiltrate. Hermelindo Espitia MD CT head negative Differential Diagnosis Depression versus suicidal ideation versus anxiety versus adjustment disorder versus mood disorder versus bipolar disorder versus schizophrenia versus paranoid disorder versus psychosis versus substance abuse versus alcohol abuse versus alcohol induced psychosis versus homicidality addition versus cutting versus personality disorder Narrative Course 81-year-old female that presents to the ED for evaluation of psych. Patient was properly examined and was found to have signs and symptoms consistent appears to be dementia with agitation. No sign of acute medical distress. Labs were drawn. CT of the head and chest x-ray were done as patient did complain of possible fall recently. Imaging was negative. Labs did show UTI. At this time patient will be given Cipro IV. Case discussed in my attending who recommends admission. Patient had to be medicated multiple times including given 2 mg of Ativan as well as had haldol to help with her agitation.. Patient did seem to calm down. Case discussed with Dr. Verdin who agrees to admission. Patient was admitted to the medical service with consult to psychiatry. 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
[2016-10-21] MEDS ORDERED: HALOPERIDOL LACTATE 5 MG/ML AMP IM ONE (18:15)
[2016-10-21 19:24] LABS: BLOOD, URINE TRACE (NEG); COMMENT (UR) CULTURE INDICATED; CULTURE IF INDICATED CULTURE INDICATED; GLUCOSE,URINE NEG (NEG); KETONE, URINE 10 mg/dL (NEG); MUCUS URINE FEW /lpf (OCC); NITRITE,URINE NEG (NEG); SQUAMOUS EPITHELIAL CELL URINE 5 /hpf (0-5)
[2016-10-21 19:25] LABS: URINE COLOR LIGHT-BROWN (YELLW/STRAW)
[2016-10-21] MEDS ORDERED: CIPROFLOXACIN 200 MG PREMIX 100 ML IV ONE (19:45)
[2016-10-21 20:00] VITALS: BP 156/83; PULSE 88; RESP 16; O2SAT 97
[2016-10-21] MEDS ORDERED: PROMETHAZINE HCL 25 MG TAB PO PRN (20:00)
[2016-10-21] MEDS ORDERED: BISACODYL 10 MG SUPP RECTAL PRN (20:00)
[2016-10-21] MEDS ORDERED: MECLIZINE HCL 25 MG TAB PO PRN (20:00)
[2016-10-21] MEDS ORDERED: [UNRECOGNIZED DRUG - REMARK] PO PRN (20:00)
[2016-10-21] MEDS ORDERED: GUAIFENESIN 100 MG PO PRN (20:00)
[2016-10-21] MEDS ORDERED: MAGNESIUM HYDROXIDE SUSP 30 ML CUP PO PRN (20:00)
[2016-10-21 20:08] VITALS: O2SAT 96
[2016-10-21] MEDS ORDERED: BISACODYL 10 MG SUPP PR PRN (20:15)
[2016-10-21] MEDS ORDERED: HALOPERIDOL LACTATE 5 MG/ML AMP IM PRN (20:15)
[2016-10-21] MEDS ORDERED: NALOXONE HCL 0.4 MG/ML AMP IV PRN (20:15)
[2016-10-21] MEDS ORDERED: SODIUM CHLORIDE 0.9% FLUSH 5 ML FLUSH FLUSH PRN (20:15)
[2016-10-21] MEDS ORDERED: ONDANSETRON HCL 4 MG/2 ML VIAL IVP PRN (20:15)
[2016-10-21] MEDS ORDERED: diphenhydrAMINE HCL 25 MG CAP PO PRN (20:30)
[2016-10-21] MEDS ORDERED: guaiFENesin SOLUTION 200 MG/10 ML CUP PO PRN (20:30)
[2016-10-21] MEDS ORDERED: RESP: ALBUTEROL 2.5 MG/IPRATROPIUM 0.5 MG NEB (PRN) NEB (20:30)
[2016-10-21] MEDS ORDERED: ENOXAPARIN SODIUM 40 MG/0.4 ML SYRINGE SQ SCH (21:00)
[2016-10-21] MEDS ORDERED: ALPRAZolam 1 MG TAB PO SCH (21:00)
[2016-10-21] MEDS ORDERED: ALPRAZolam 0.5 MG TAB PO SCH (21:00)
[2016-10-21] MEDS: GABAPENTIN 300 MG CAP PO SCH ×2 (21:00→22:47)
[2016-10-21] MEDS ORDERED: PANTOPRAZOLE SODIUM 40 MG VIAL IV PUSH SCH (21:00)
[2016-10-21] MEDS: SODIUM CHLORIDE 0.9% FLUSH 5 ML FLUSH FLUSH SCH (21:21)
[2016-10-21 22:43] VITALS: BP 146/67; PULSE 73; RESP 18; TEMP 98.8; O2SAT 98
[2016-10-21] MEDS: DOCUSATE SODIUM 100 MG CAP PO SCH (22:46)
[2016-10-21] MEDS: levETIRAcetam 500 MG TAB PO SCH (22:47)
[2016-10-22 04:00] VITALS: BP 141/63; PULSE 65; RESP 16; TEMP 98; O2SAT 92
[2016-10-22 07:01] LABS: AUTOMATED NEUTROPHIL # 4.6 TH/MM3 (1.8-7.7); BASOPHIL # 0.1 TH/MM3 (0-0.2); BASOPHIL % 1.4 % (0.0-2.0); EOSINOPHIL # 0.4 TH/MM3 (0-0.4); HEMATOCRIT 36.9 % (35.0-46.0); HEMO FLAGS DIFF FINAL; LYMPH % 29.8 % (9.0-44.0); LYMPHOCYTE # 2.5 TH/MM3 (1.0-4.8); MEAN CELL VOLUME 84.8 FL (80.0-100.0); MEAN CORPUSCULAR HEMOGLOBIN 27.7 PG (27.0-34.0); MEAN CORPUSCULAR HGB CONC 32.6 % (32.0-36.0); MONO % 9.1 % (0.0-8.0); NEUT % 54.7 % (16.0-70.0); PLATELET COUNT 408 TH/MM3 (150-450); RED BLOOD COUNT 4.35 MIL/MM3 (4.00-5.30); RED CELL DISTRIBUTION WIDTH 14.4 % (11.6-17.2); WHITE BLOOD COUNT 8.5 TH/MM3 (4.0-11.0)
[2016-10-22 07:39] LABS: BICARBONATE 29.7 MEQ/L (21.0-32.0)
[2016-10-22 07:47] VITALS: BP 144/67; PULSE 64; RESP 17; TEMP 98.4; O2SAT 93
[2016-10-22] MEDS ORDERED: CIPROFLOXACIN 400 MG PREMIX 200 ML IV SCH (08:00)
[2016-10-22 08:08] LABS: POTASSIUM 2.9 MEQ/L (3.5-5.1)
[2016-10-22 08:21] VITALS: O2SAT 94
[2016-10-22] MEDS ORDERED: DULoxetine HCl DR 20 MG CAP PO SCH (09:00)
[2016-10-22] MEDS ORDERED: DULoxetine HCl DR 30 MG CAP PO SCH (09:00)
[2016-10-22] MEDS: SODIUM CHLORIDE 0.9% FLUSH 5 ML FLUSH FLUSH SCH ×2 (09:17→20:53)
[2016-10-22] MEDS: ASPIRIN EC 81 MG TABEC PO SCH (09:18)
[2016-10-22] MEDS: levETIRAcetam 500 MG TAB PO SCH ×2 (09:18→20:53)
[2016-10-22] MEDS: DOCUSATE SODIUM 100 MG CAP PO SCH ×2 (09:18→20:53)
[2016-10-22] MEDS: GABAPENTIN 300 MG CAP PO SCH ×3 (09:18→20:53)
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
[2016-10-22] MEDS: POTASSIUM CHLOR 20 MEQ PREMIX 100 ML IV SCH ×2 (10:08→12:00)
--- NOTE | 2016-10-22 10:09 | PD.CONS ---
Provisional Diagnosis Admission Date Oct 21, 2016 at 19:42 [place] I. Dementia with behavioral disturbances, vs delirium due to underlying medical condition [place] II. Deferred [place] III. Seizures, HTN, GERD, vertigo, Parkinson disease, dementia [place] IV. Multiple chronic medical conditions [place] V. 40 History of Present Illness Service Psychiatry Consult Requested By Primary Care Physician Adonis Verdin MD HPI The patient is a 81-year-old woman, domiciled in a [facility], documented history of dementia with behavioral disturbances, medical history of HTN, GERD, vertigo, parkinsonism, seizures that presents to the ED for evaluation of psych. Patient apparently lives at an assisted living facility and they Paul acted her because of her increasing agitation. Apparently patient is aggressive towards staff and acting more psychotic. Patient is a poor historian doesn't really provide much information. She was here just a couple days ago for chest pain and had a workup that showed no sign of acute disease. Patient also has been voicing suicidal statements. Medical work up is being done, so far she has shown a significant UTI. On evaluation was found sleeping, but easily abusable, she does not remember he circumstances the brought her to the hospital, she is disoriented, she does not know where she is, believe she is in 2019, is unable to list the name of her medical conditions, does not know who is president of the nation and even though she can repeat 3 word, she is unable to recall 5 minutes later. she can answer some question and follow simple commands. She does report good mood, denies depression, denies SI/HI/VH/AH. during this evaluation patient is calm and cooperative, she does not show any evident aggressive behavior or agitation at this moment. She denies the use of drugs and alcohol. Review of Systems Constitutional: DENIES: Diaphoretic episodes, Fatigue, Fever, Weight gain, Weight loss, Chills, Dizziness, Change in appetite, Night Sweats Endocrine: DENIES: Abnorml menstrual pattern, Heat/cold intolerance, Polydipsia , Polyuria, Polyphagia Eyes: DENIES: Blurred vision, Diplopia, Eye inflammation, Eye pain, Vision loss , Photosensitivity, Double Vision Ears, nose, mouth, throat: DENIES: Tinnitus, Hearing loss, Vertigo, Nasal discharge, Oral lesions, Throat pain, Hoarseness, Ear Pain, Running Nose, Epistaxis, Sinus Pain, Toothache, Odynophagia Respiratory: DENIES: Apneas, Cough, Snoring, Wheezing, Hemoptysis, Sputum production, Shortness of breath Cardiovascular: DENIES: Chest pain, Palpitations, Syncope, Dyspnea on Exertion , PND, Lower Extremity Edema, Orthopnea, Claudication Gastrointestinal: DENIES: Abdominal pain, Black stools, Bloody stools, Constipation, Diarrhea, Nausea, Vomiting, Difficulty Swallowing, Anorexia Genitourinary: DENIES: Abnormal vaginal bleeding, Dysmenorrhea, Dyspareunia, Sexual dysfunction, Urinary frequency, Urinary incontinence, Urgency, Hematuria , Dysuria, Nocturia, Vaginal discharge Integumentary: DENIES: Abnormal pigmentation, Pruritus, Rash, Nail changes, Breast masses, Breast skin changes, Nipple discharge Immunologic/allergic: DENIES: Eczema, Urticaria Neurologic: DENIES: Abnormal gait, Headache, Localized weakness, Paresthesias, Seizures, Speech Problems, Tremor, Poor Balance Psychiatric: DENIES: Anxiety, Confusion, Mood changes, Depression, Hallucinations, Agitation, Suicidal Ideation, Homicidal Ideation, Delusions Past Family Social History Coded Allergies: Augmentin (Verified Allergy, Severe, nausea, 10/21/16) Demerol (Verified Allergy, Severe, 10/21/16) Keflex (Verified Allergy, Severe, 10/21/16) ANTIHISTAMINE DRUGS (Verified Allergy, Mild, 10/21/16) Muscle Relaxants (Verified Allergy, Mild, 10/21/16) Uncoded Allergies: CODIENE (Allergy, Severe, 03/04/07) MYOCINS (Allergy, Severe, 03/04/07) FLU SHOTS (Allergy, Mild, 03/04/07) Reported Medications Ipratropium-Albuterol Neb (Duoneb)0.5-2.5 Mg/3 Ml Neb1 Nebule INH Q6HR NEB PRN ( SHORTNESS OF BREATH) #120 NEBULE Ref 0 10/17/16 Diphenhydramine (Benadryl Allergy)25 Mg Tab25 Mg PO Q6H PRN (ITCHING) Ref 0 10/17/16 Loperamide 2 Mg Tab2 Mg PO Q4HR PRN (DIARRHEA) Ref 0 One tablet after each loose stool. Not to exceed 8 tablets per day. 10/17/16 Albuterol 18 GM Inh (Ventolin Hfa 18 GM Inh)90 Mcg/Act Aer2 Puff INH Q4HR PRN ( SHORTNESS OF BREATH) #1 INHALER Ref 0 10/17/16 Promethazine (Phenergan)25 Mg Tab25 Mg PO Q6H PRN (NAUSEA OR VOMITING) Ref 0 10/17/16 Meclizine HCl (Meclizine 25)25 Mg Tab25 Mg PO Q6HR PRN (DIZZINESS) 10/17/16 Guaifenesin 100 Mg/5 Ml Snu033 Mg PO Q4HR PRN (COUGH) 10/17/16 Alprazolam (Xanax)0.5 Mg Tab0.5 Mg PO Q6H PRN (ANXIETY) Ref 0 10/17/16 Phenol (Antiseptic) (Chloraseptic)1.4 % Spr2 [place] MT Q2HR PRN (SORE THROAT) 10/17/16 Acetaminophen (Mapap)325 Mg Sts431 Mg PO Q4HR PRN (TEMP/PAIN) Ref 0 10/17/16 Bisacodyl Supp (Dulcolax Supp)10 Mg Supp10 Mg RECTAL HS PRN (CONSTIPATION) #12 SUPP Ref 0 10/17/16 Magnesium Hydroxide Liq (Milk of Magnesia Liq)400 Mg/5 Ml Susp30 Ml PO HS PRN ( CONSTIPATION) #30 ML Ref 0 10/17/16 Alprazolam (Xanax)1 Mg Tab1 Mg PO HS Ref 0 10/17/16 Alprazolam (Xanax)0.5 Mg Tab0.5 Mg PO BID Ref 0 10/17/16 Omeprazole 40 Mg Cap40 Mg PO DAILY@1600 #30 CAP Ref 0 10/17/16 Levetiracetam (Keppra)500 Mg Mup467 Mg PO BID #60 TAB Ref 0 10/17/16 Nitrofurantoin Macrocrystal 100 Mg Bpk070 Mg PO DAILY Ref 0 10/17/[address] (Kael FERNANDEZ)20 Mg Capdr20 Mg PO DAILY #30 CAP Ref 0 10/17/[address] (Ginombalta )30 Mg Capdr30 Mg PO DAILY #30 CAP Ref 0 10/17/16 Ropinirole (Requip)0.5 Mg Tab0.5 Mg PO HS #30 TAB Ref 0 10/17/16 Gabapentin 600 Mg Ozj882 Mg PO HS #30 TAB Ref 0 10/17/16 Gabapentin 300 Mg Bko645 Mg PO BID #60 CAP Ref 0 10/17/16 Carbidopa-Levodopa (Sinemet)25-100 Mg Tab3 Tab PO QID #90 TAB Ref 0 10/17/16 Docusate Sodium (Colace)100 Mg Spn961 Mg PO BID #60 CAP Ref 0 10/17/[address] 81 Mg Tabdr81 Mg PO DAILY Ref 0 10/17/16 Discontinued Reported Medications Docusate Sodium (Colace)100 Mg Jew636 Mg PO BID PRN (Constipation) #60 CAP Ref 0 10/17/16 Discontinued Scripts Hydrocodone-Acetaminophen (Lortab 5/500)5 Mg/500 Mg Tab1 Tab PO Q6HPRN #120 Prov:ALE NOGUEIRA MD 03/06/12 Current Medications Medications (Trade) Dose Ordered Sig/Akila Route Start Time Stop Time Status Last Admin (Ecotrin Ec) 81 mg DAILY PO 10/22/16 09:00 10/22/16 09:18 (Colace) 100 mg BID PO 10/21/16 21:00 10/22/16 09:18 (Cymbalta Dr) 20 mg DAILY PO 10/22/16 09:00 (Cymbalta Dr) 30 mg DAILY PO 10/22/16 09:00 10/22/16 09:18 (Neurontin) 300 mg BID PO 10/21/16 21:00 10/22/16 09:18 (Neurontin) 600 mg HS PO 10/21/16 21:00 10/21/16 22:47 (Keppra) 500 mg BID PO 10/21/16 21:00 10/22/16 09:18 (Milk Of Magnesia Liq) 30 ml HS PRN PO 10/21/16 20:00 (Antivert) 25 mg Q6H PRN PO 10/21/16 20:00 (Phenergan) 25 mg Q6H PRN PO 10/21/16 20:00 (NS Flush) 2 ml UNSCH PRN FLUSH 10/21/16 20:15 (NS Flush) 2 ml BID FLUSH 10/21/16 21:00 10/22/16 09:17 (Tylenol) 650 mg Q4H PRN PO 10/21/16 20:15 (Zofran Inj) 4 mg Q6H PRN IVP 10/21/16 20:15 (Dulcolax Supp) 10 mg DAILY PRN [place] 10/21/16 20:15 (Lovenox Inj) 40 mg Q24H SQ 10/21/16 21:00 10/21/16 22:47 (Narcan Inj) 0.4 mg UNSCH PRN IV 10/21/16 20:15 (Protonix Inj) 40 mg Q24H IV PUSH 10/21/16 21:00 10/21/16 22:46 Haloperidol Lactate 5 mg 5 mg Q4H PRN IM 10/21/16 20:15 (Cipro 400 Mg Premix) 200 ml @ 200 mls/hr Q12H IV 10/22/16 08:00 (Robitussin Liq) 100 mg Q4H PRN PO 10/21/16 20:30 Diphenhydramine HCl 25 mg 25 mg Q6H PRN PO 10/21/16 20:30 (KCl 20 Meq Premix Inj) 100 ml @ 50 mls/hr Q2H IV 10/22/16 10:00 10/22/16 13:59 Social History [facility] Physical Exam Vital Signs Vital Signs Date Time Temp Pulse Resp B/P Pulse Ox O2 Delivery O2 Flow Rate FiO2 10/22/16 08:21 94 21 10/22/16 07:47 98.4 64 17 144/67 10/21/16 20:00 Room Air Mental Status Examination Speech: Hesitant, Slow Orientation: Person Memory: Impaired (describe) Thought Process: Loose Association Thought Content: Ideas of Reference Hallucination Type: None Suicidal Ideation: No Previous Suicide Attempts: No Homicidal Ideation: No Previous Homicide Attempts: No Judgement: Poor Affect if Inappropriate: Flat Mood: Euthymic Motor Activity: Normal gait Assessment & Plan Problem List: (1) Dementia Assessment & Plan: The patient is a 81-year-old woman, domiciled in a [facility], documented history of dementia with behavioral disturbances, medical history of HTN, GERD, vertigo, parkinsonism, seizures that presents to the ED for evaluation of psych. Patient apparently lives at an assisted living facility and they Paul acted her because of her increasing agitation. Apparently patient is aggressive towards staff and acting more psychotic. Patient is a poor historian doesn't really provide much information. She was here just a couple days ago for chest pain and had a workup that showed no sign of acute disease. Patient also has been voicing suicidal statements. On evaluation patient is not providing much information, she is disoriented and pleasantly confused, no providing meaningful information for the psychiatric assessment, but she denies SI/HI/VHA. . Severe agitation and aggressive behavior, Self harms ideas have been described and documented. No clear at this moment if behavioral/mood dysregulation is due to decompensation of dementia or secondary to delirium most probably related with UTI or other underlying medical conditions. Full medical workup for delirium is necessary. Since patient has history of Parkinson, must be careful with antipsychotics, especially highly antidopaminergic, such as Haldol, Risperdal or Geodon Will prefer Seroquel/Olanzapine with less potent antidopaminergic activity Will add Seroquel 25 mg bid to control behavior, discontinue Haldol 5 mg prn and will substitute with Olanzapine 10 mg im Q/6 PRN aggressiveness and agitation Avoid deliriogenic medications as much as possible, such as Benzos/ Anticholinergics and narcotics Since Keppra could cause behavioral dyscontrol, psychosis and aggressive behavior, he would be interesting to as neurology if Keppra could be assisted to with Depakote, medication that will help with seizures and behavior at the same time. Patient might need psychiatric admission if psychosis/aggressive behavior persists beyond medical clearance. We'll continue follow-up. ICD Code: F03.90 Assessment & Plan Estimated LOS: days Problem Qualifiers (1) Dementia: Qualified Code: G30.1 - Late onset Alzheimer's disease with behavioral disturbance Florencio Mo MD Oct 22, 2016 10:09
[2016-10-22] MEDS ORDERED: OLANZapine IM 10 MG VIAL IM PRN (10:15)
[2016-10-22 10:52] LABS: MAGNESIUM 2.2 MG/DL (1.5-2.5)
[2016-10-22 11:23] VITALS: BP 159/71; PULSE 77; RESP 16; TEMP 98.8; O2SAT 92
[2016-10-22] MEDS ORDERED: DULoxetine HCl DR 30 MG CAP PO ONE (12:00)
[2016-10-22] MEDS ORDERED: POTASSIUM CHLORIDE 20 MEQ CONTROLLED RELEASE TAB PO ONE (13:15)
[2016-10-22] MEDS: SULFAMETHOXAZOLE-TRIMETHOPRIM DS 800-160 MG TAB PO SCH ×2 (13:46→20:53)
[2016-10-22] MEDS: QUEtiapine FUMARATE 25 MG TAB PO SCH (13:46)
[2016-10-22] MEDS ORDERED: NON-FORMULARY DRUG (Omeprazole 40 MG) PO SCH (16:00)
[2016-10-22] MEDS: LORazepam 0.5 MG TAB PO SCH (20:53)
[2016-10-22 21:47] VITALS: O2SAT 93
[2016-10-23 05:45] LABS: BICARBONATE 25.2 MEQ/L (21.0-32.0); POTASSIUM 3.2 MEQ/L (3.5-5.1)
[2016-10-23 08:48] VITALS: BP 199/88; PULSE 87; RESP 20; TEMP 98; O2SAT 97
[2016-10-23] MEDS: SODIUM CHLORIDE 0.9% FLUSH 5 ML FLUSH FLUSH SCH ×2 (09:00→20:25)
[2016-10-23] MEDS: DOCUSATE SODIUM 100 MG CAP PO SCH ×2 (09:38→20:24)
[2016-10-23] MEDS: SULFAMETHOXAZOLE-TRIMETHOPRIM DS 800-160 MG TAB PO SCH ×2 (09:38→20:24)
[2016-10-23] MEDS: LORazepam 0.5 MG TAB PO SCH ×2 (09:38→20:25)
[2016-10-23] MEDS: PANTOPRAZOLE SOD 40 MG DELAYED RELEASE TAB PO SCH (09:38)
[2016-10-23] MEDS: ASPIRIN EC 81 MG TABEC PO SCH (09:39)
[2016-10-23] MEDS: QUEtiapine FUMARATE 25 MG TAB PO SCH ×2 (09:39→12:27)
[2016-10-23] MEDS: GABAPENTIN 300 MG CAP PO SCH ×3 (09:39→20:25)
[2016-10-23] MEDS: levETIRAcetam 500 MG TAB PO SCH ×2 (09:39→20:24)
[2016-10-23 10:15] VITALS: BP 160/70
--- NOTE | 2016-10-23 10:55 | HHI.FPPN ---
Subjective Remarks NO SI BEHAVIORS CONTROLLED SOME LABILE BEHAVIORS D/W RN CONSULT REPORTS NOTED Objective Vitals Vital Signs Date Time Temp Pulse Resp B/P Pulse Ox O2 Delivery O2 Flow Rate FiO2 10/23/16 08:48 98.0 87 20 199/88 97 10/22/16 21:47 93 21 10/22/16 11:23 98.8 77 16 159/71 92 Result Diagram: 10/22/16 0632 10/23/16 0413 Objective Remarks GENERAL: SKIN: Warm and dry. HEAD: Atraumatic. Normocephalic. EYES: Pupils equal and round. No scleral icterus. No injection or drainage. ENT: No nasal bleeding or discharge. Mucous membranes pink and moist. NECK: Trachea midline. No JVD. CARDIOVASCULAR: Regular rate and rhythm. RESPIRATORY: No accessory muscle use. Clear to auscultation. Breath sounds equal bilaterally. GASTROINTESTINAL: Abdomen soft, non-tender, nondistended. Hepatic and splenic margins not palpable. MUSCULOSKELETAL: Extremities without clubbing, cyanosis, or edema. No obvious deformities. NEUROLOGICAL: Awake and alert. No obvious cranial nerve deficits. Motor grossly within normal limits. 3 out of 5 muscle strength in the arms and legs. Normal speech. PSYCHIATRIC: Appropriate mood and affect; insight and judgment normal. Medications and IVs Current Medications Medications (Trade) Dose Ordered Sig/Akila Route Start Time Stop Time Status Last Admin (Ecotrin Ec) 81 mg DAILY PO 10/22/16 09:00 10/23/16 09:39 (Colace) 100 mg BID PO 10/21/16 21:00 10/23/16 09:38 (Neurontin) 300 mg BID PO 10/21/16 21:00 10/23/16 09:39 (Neurontin) 600 mg HS PO 10/21/16 21:00 10/22/16 20:53 (Keppra) 500 mg BID PO 10/21/16 21:00 10/23/16 09:39 (Milk Of Magnesia Liq) 30 ml HS PRN PO 10/21/16 20:00 (Antivert) 25 mg Q6H PRN PO 10/21/16 20:00 (Phenergan) 25 mg Q6H PRN PO 10/21/16 20:00 (NS Flush) 2 ml UNSCH PRN FLUSH 10/21/16 20:15 (NS Flush) 2 ml BID FLUSH 10/21/16 21:00 10/22/16 20:53 (Tylenol) 650 mg Q4H PRN PO 10/21/16 20:15 (Zofran Inj) 4 mg Q6H PRN IVP 10/21/16 20:15 (Dulcolax Supp) 10 mg DAILY PRN [place] 10/21/16 20:15 (Narcan Inj) 0.4 mg UNSCH PRN IV 10/21/16 20:15 (Robitussin Liq) 100 mg Q4H PRN PO 10/21/16 20:30 (Benadryl) 25 mg Q6H PRN PO 10/21/16 20:30 (Bactrim Ds 800-160 Mg) 1 tab Q12HR PO 10/22/16 12:00 10/29/16 11:59 10/23/16 09:38 (Ativan) 0.5 mg Q12HR PO 10/22/16 21:00 10/23/16 09:38 (Protonix) 40 mg DAILY PO 10/23/16 09:00 10/23/16 09:38 (ZyPREXA INJ) 10 mg Q8HR PRN IM 10/22/16 10:15 (SEROquel) 25 mg BID@09,12 PO 10/22/16 12:00 10/23/16 09:39 A/P Assessment and Plan SUICIDAL ATTEMPT AMS DUE TO UTI AND OR PERSONALITY DISORDER CHRONIC TID XANAX USE UTI HYPOKALEMIA ASTHMA HTN, URGENT SZ PARKINSONS FIBROMYALGIA PLAN: INCREASE ANTIHYPERTENSIVES CHANGED TO PO ABX PSYCH CONSULT REPLACE K, add KCL QD CHECK KEPPRA NEURO CONSULT FOR KEPPRA ALTERNATIVES PLEASE SEE MY ORDERS OBS ADMIT Adonis Verdin MD Oct 23, 2016 10:55
--- NOTE | 2016-10-23 11:24 | HHI.PYPN ---
Subjective Remarks Patient was seen today for psychiatric reevaluation, she was found calm, cooperative and pleasant, he reports a good mood, she says that she feels better , denies distress, denies pain, she says that she is happy to be in the hospital and she feels well treated. He denies depressive symptoms, she denies anhedonia, she denies hopelessness, she denies helplessness, she denies suicidal or homicidal ideation. She denies auditory hallucinations, but reports visual hallucinations, she sees her almost everyday, usually before going to sleep "he comes and he calm me and he gives me peace, than he leaves". Patient today is fully oriented in person and place, partially oriented in time, she knows the month and the year. On evaluation patient is a logical, coherent, relevant and seems to be motivated to follow medical recommendations. No agitation, no aggressive behavior, no confusion, no fluctuation of consciousness, paranoia or internal stimulation are observed. Review of Systems Constitutional: DENIES: Diaphoretic episodes, Fatigue, Fever, Weight gain, Weight loss, Chills, Dizziness, Change in appetite, Night Sweats Endocrine: DENIES: Abnorml menstrual pattern, Heat/cold intolerance, Polydipsia , Polyuria, Polyphagia Eyes: DENIES: Blurred vision, Diplopia, Eye inflammation, Eye pain, Vision loss , Photosensitivity, Double Vision Ears, nose, mouth, throat: DENIES: Tinnitus, Hearing loss, Vertigo, Nasal discharge, Oral lesions, Throat pain, Hoarseness, Ear Pain, Running Nose, Epistaxis, Sinus Pain, Toothache, Odynophagia Respiratory: DENIES: Apneas, Cough, Snoring, Wheezing, Hemoptysis, Sputum production, Shortness of breath Cardiovascular: DENIES: Chest pain, Palpitations, Syncope, Dyspnea on Exertion , PND, Lower Extremity Edema, Orthopnea, Claudication Gastrointestinal: DENIES: Abdominal pain, Black stools, Bloody stools, Constipation, Diarrhea, Nausea, Vomiting, Difficulty Swallowing, Anorexia Musculoskeletal: DENIES: Joint pain, Muscle aches, Stiffness, Joint Swelling, Back pain, Neck pain Integumentary: DENIES: Abnormal pigmentation, Pruritus, Rash, Nail changes, Breast masses, Breast skin changes, Nipple discharge Hematologic/lymphatic: DENIES: Bruising, Lymphadenopathy Immunologic/allergic: DENIES: Eczema, Urticaria Neurologic: DENIES: Abnormal gait, Headache, Localized weakness, Paresthesias, Seizures, Speech Problems, Tremor, Poor Balance Psychiatric: COMPLAINS OF: Hallucinations, DENIES: Anxiety, Confusion, Mood changes, Depression, Agitation, Suicidal Ideation, Homicidal Ideation, Delusions Objective Alert: Yes [place]: Person, Place, Date, Situation Mood: Calm Affect: Euthymic Memory Intact: Remote Hallucinations: Visual Delusions: No Delusion Type: Other (none) Suicidal: Ideation (she denies) Homicidal: Ideation (she denies) Insight/Judgement Fair Labs Test 10/23/16 04:13 Sodium Level 144 MEQ/L Potassium Level 3.2 MEQ/L Chloride Level 110 MEQ/L Carbon Dioxide Level 25.2 MEQ/L Anion Gap 9 MEQ/L Blood Urea Nitrogen 9 MG/DL Creatinine 0.66 MG/DL Estimat Glomerular Filtration 86 ML/MIN Rate Random Glucose 94 MG/DL Calcium Level 8.7 MG/DL Date/Time Procedure Status Source Growth 10/21/16 19:10 Urine Culture - Final Complete Urine Clean Catch NO GROWTH IN 48 HOURS. Vitals/IOs Vital Signs Date Time Temp Pulse Resp B/P Pulse Ox O2 Delivery O2 Flow Rate FiO2 10/23/16 08:48 98.0 87 20 199/88 97 10/22/16 21:47 21 10/21/16 20:00 Room Air Assessment & Plan Problem List: (1) Dementia Assessment & Plan: Today patient seems to have a brighter affect, he reports good mood, denies depression, denies anxiety, no agitation or aggressive behavior reported or observed. No fluctuation of consciousness, no gross attention deficit depressing, she does have recent and immediate memory problems which are consistent with her ongoing dementia. Patient does endorse Ego-syntonic, frequent, visual hallucinations of seeing her calming to calm her to comfort for her, but this perceptual disturbances are not concerning for the psychiatric perspective. She does not meet criteria for psychiatric admission. She can continue the Seroquel 25 mg twice a day to control behavior and potential delirium. ICD Code: F03.90 Assessment & Plan Estimated LOS: days Justification for Cont. Inpt. 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
[2016-10-23 11:40] VITALS: BP 145/88; PULSE 104; RESP 16; TEMP 98.1; O2SAT 91
[2016-10-23] MEDS: POTASSIUM CHLORIDE 10 MEQ CONTROLLED RELEASE TAB PO SCH (12:27)
[2016-10-23] MEDS: LISINOPRIL 20 MG TAB PO SCH (12:27)
[2016-10-23] MEDS: DIVALPROEX SODIUM E.R. 500 MG TAB PO SCH (12:30)
--- NOTE | 2016-10-23 12:34 | MB ---
cc: YVETTE ADAMS M.D. DATE OF CONSULTATION: 10/23/2016 REASON FOR CONSULTATION Possible change of anticonvulsant medication from Keppra to Depakote. HISTORY OF PRESENT ILLNESS Ms. Romero is an 81-year-old female who states she has a history of seizures which she calls "grand mal seizures." She states that she loses consciousness and has generalized jerking activity during these events. She states that she has not had any seizures however in the past 12 years. She states prior to that she had a 10 or 15 year course of seizures. She has been on Keppra but denies being on any other seizure medications. She is now admitted with psychotic symptoms and the concern is that the Keppra may be contributory to her psychotic symptomatology. Neurology is consulted to consider Depakote as a replacement therapy for Keppra in view of these potential psychotic effects. PAST MEDICAL HISTORY 1. Seizure disorder but none for a number of years. 2. Dementia. 3. Hypertension. 4. GERD. 5. Vertigo. 6. Parkinsonism. MEDICATIONS Current medications are: 1. Keppra 500 mg p.o. b.i.d. 2. Prinivil 20 mg daily. 3. Protonix 40 mg daily. 4. Ativan 0.5 mg b.i.d. 5. Seroquel 25 mg b.i.d. 6. Bactrim DS, one tablet b.i.d. 7. Zyprexa 10 mg p.r.n. 8. Aspirin 81 mg daily. 9. Colace 100 mg b.i.d. 10.Neurontin 300 mg b.i.d. and 600 mg h.s. 11.Robitussin as needed. NEUROLOGIC EXAMINATION VITAL SIGNS: Blood pressure 145/88, pulse 104, respiratory rate 16, temperature 98 degrees. HIGHER CORTICAL FUNCTION: She is alert, oriented x2, poor recall. She follows commands well. CRANIAL NERVES: Intact. MOTOR: Exam is normal with 5/5 strength throughout. There is no drift. Reflexes are symmetric. IMAGING CT of the brain is normal. LABORATORY DATA White count 8500, hemoglobin 12, hematocrit 36.9%, platelet count 408,000. Sodium 144, potassium 3.2, chloride 110, CO2 25.2, BUN 9, creatinine 0.66, GFR 86, glucose 94, AST 19, ALT 7. IMPRESSION History of seizures which appear to be primarily generalized tonic-clonic seizures based on her history. These have been very stable over the past 12 years with no recurrence. I feel that Depakote would definitely be a reasonable alternative to Keppra therapy. Will start Depakote. Once the level is therapeutic for seizures, i.e., between 50 and 100, could then wean off the Keppra gradually. Thank you for asking us to see this nice patient. MD HERMELINDA Malik/CHRIS /12:11 PM /12:23 PM
[2016-10-23] MEDS: ACETAMINOPHEN 325 MG TAB PO PRN (15:10)
[2016-10-23 15:42] VITALS: BP 145/68; PULSE 94; RESP 16; TEMP 98.2; O2SAT 94
[2016-10-23 19:47] VITALS: BP 158/70; PULSE 82; RESP 20; TEMP 98.1; O2SAT 95
[2016-10-23] MEDS ORDERED: LORazepam 0.5 MG TAB PO PRN (20:15)
[2016-10-24 04:19] VITALS: BP 137/62; PULSE 66; RESP 20; TEMP 98.8; O2SAT 96
[2016-10-24] MEDS: SODIUM CHLORIDE 0.9% FLUSH 5 ML FLUSH FLUSH SCH ×3 (08:00→20:41)
[2016-10-24 08:03] LABS: AUTOMATED NEUTROPHIL # 5.8 TH/MM3 (1.8-7.7); BASOPHIL % 0.4 % (0.0-2.0); EOSINOPHIL # 0.4 TH/MM3 (0-0.4); HEMATOCRIT 37.4 % (35.0-46.0); HEMO FLAGS DIFF FINAL; LYMPH % 23.7 % (9.0-44.0); LYMPHOCYTE # 2.2 TH/MM3 (1.0-4.8); MEAN CELL VOLUME 84.3 FL (80.0-100.0); MEAN CORPUSCULAR HGB CONC 33.2 % (32.0-36.0); MONO % 8.3 % (0.0-8.0); NEUT % 63.6 % (16.0-70.0); PLATELET COUNT 470 TH/MM3 (150-450); RED BLOOD COUNT 4.43 MIL/MM3 (4.00-5.30); RED CELL DISTRIBUTION WIDTH 15.1 % (11.6-17.2); WHITE BLOOD COUNT 9.1 TH/MM3 (4.0-11.0)
[2016-10-24 08:18] LABS: BICARBONATE 23.6 MEQ/L (21.0-32.0); POTASSIUM 3.5 MEQ/L (3.5-5.1)
[2016-10-24 08:57] VITALS: BP 142/64; PULSE 80; RESP 16; TEMP 98; O2SAT 94
[2016-10-24] MEDS: DOCUSATE SODIUM 100 MG CAP PO SCH ×2 (09:32→20:35)
[2016-10-24] MEDS: LISINOPRIL 20 MG TAB PO SCH (09:35)
[2016-10-24] MEDS: DIVALPROEX SODIUM E.R. 500 MG TAB PO SCH (09:35)
[2016-10-24] MEDS: ASPIRIN EC 81 MG TABEC PO SCH (09:35)
[2016-10-24] MEDS: PANTOPRAZOLE SOD 40 MG DELAYED RELEASE TAB PO SCH (09:35)
[2016-10-24] MEDS: LORazepam 0.5 MG TAB PO SCH ×2 (09:35→20:35)
[2016-10-24] MEDS: POTASSIUM CHLORIDE 10 MEQ CONTROLLED RELEASE TAB PO SCH (09:35)
[2016-10-24] MEDS: SULFAMETHOXAZOLE-TRIMETHOPRIM DS 800-160 MG TAB PO SCH ×2 (09:35→20:35)
[2016-10-24] MEDS: GABAPENTIN 300 MG CAP PO SCH ×3 (09:35→20:37)
[2016-10-24] MEDS: QUEtiapine FUMARATE 25 MG TAB PO SCH ×2 (09:35→14:05)
[2016-10-24] MEDS: levETIRAcetam 500 MG TAB PO SCH ×3 (09:36→20:41)
[2016-10-24] MEDS: ACETAMINOPHEN 325 MG TAB PO PRN (09:36)
[2016-10-24 11:35] VITALS: BP 129/69; PULSE 97; RESP 16; TEMP 98.4; O2SAT 91
[2016-10-24] MEDS ORDERED: PANT40TA3 PO (12:45)
[2016-10-24] MEDS ORDERED: QUET1TAB7 PO (12:45)
[2016-10-24] MEDS ORDERED: POTA-243 PO (12:45)
[2016-10-24] MEDS ORDERED: BACT800T5 PO (12:45)
[2016-10-24] MEDS ORDERED: LORA-392 PO ×2 (12:45)
[2016-10-24] MEDS ORDERED: DEPA500T3 PO (12:45)
[2016-10-24] MEDS ORDERED: LISI-515 PO (12:45)
[2016-10-24] MEDS ORDERED: LEVE250 PO (12:45)
--- NOTE | 2016-10-24 12:46 | HHI.DCPOC ---
Discharge Care Plan Diagnosis: (1) Dementia (2) UTI (urinary tract infection) (3) Chest pain, atypical (4) R07.9 Goals to Promote Your Health * To prevent worsening of your condition and complications * To maintain your health at the optimal level Directions to Meet Your Goals Take your medications as prescribed Follow your dietary instruction Follow activity as directed Keep your appointments as scheduled Take your immunizations and boosters as scheduled If your symptoms worsen call your PCP, if no PCP go to Urgent Care Center or Emergency Room Smoking is Dangerous to Your Health. Avoid second hand smoke Call the 24-hour hour crisis hotline for domestic abuse at Adonis Verdin MD Oct 24, 2016 12:46
--- NOTE | 2016-10-24 12:49 | HHI.FPPN ---
Subjective Remarks CALM NO C/O PT RECALLS EVENTS AND STATES SHE HAS NO SI/HI AND IS VERY REMORSEFUL Objective Vitals Vital Signs Date Time Temp Pulse Resp B/P Pulse Ox O2 Delivery O2 Flow Rate FiO2 10/24/16 11:35 98.4 97 16 129/69 91 10/24/16 08:57 98.0 80 16 142/64 94 10/24/16 04:19 98.8 66 20 137/62 96 10/23/16 19:47 98.1 82 20 158/70 95 10/23/16 15:42 98.2 94 16 145/68 94 I/O 10/23/16 10/23/16 10/23/16 10/24/16 10/24/16 10/24/16 07:00 15:00 23:00 07:00 15:00 23:00 Intake Total 480 ml Output Total 600 ml Balance -120 ml Intake Oral 480 ml Output Urine Total 600 ml # Voids 3 2 1 # Bowel Movements 0 Result Diagram: 10/24/16 0725 10/24/16724 Objective Remarks GENERAL: SKIN: Warm and dry. HEAD: Atraumatic. Normocephalic. EYES: Pupils equal and round. No scleral icterus. No injection or drainage. ENT: No nasal bleeding or discharge. Mucous membranes pink and moist. NECK: Trachea midline. No JVD. CARDIOVASCULAR: Regular rate and rhythm. RESPIRATORY: No accessory muscle use. Clear to auscultation. Breath sounds equal bilaterally. GASTROINTESTINAL: Abdomen soft, non-tender, nondistended. Hepatic and splenic margins not palpable. MUSCULOSKELETAL: Extremities without clubbing, cyanosis, or edema. No obvious deformities. NEUROLOGICAL: Awake and alert. No obvious cranial nerve deficits. Motor grossly within normal limits. 3 out of 5 muscle strength in the arms and legs. Normal speech. PSYCHIATRIC: Appropriate mood and affect; insight and judgment normal. Medications and IVs Current Medications Medications (Trade) Dose Ordered Sig/Akila Route Start Time Stop Time Status Last Admin (Ecotrin Ec) 81 mg DAILY PO 10/22/16 09:00 10/24/16 09:35 (Colace) 100 mg BID PO 10/21/16 21:00 10/23/16 09:38 (Neurontin) 300 mg BID PO 10/21/16 21:00 10/24/16 09:35 (Neurontin) 600 mg HS PO 10/21/16 21:00 10/23/16 20:23 (Keppra) 500 mg BID PO 10/21/16 21:00 10/24/16 09:36 (Milk Of Magnesia Liq) 30 ml HS PRN PO 10/21/16 20:00 (Antivert) 25 mg Q6H PRN PO 10/21/16 20:00 (Phenergan) 25 mg Q6H PRN PO 10/21/16 20:00 (NS Flush) 2 ml UNSCH PRN FLUSH 10/21/16 20:15 (NS Flush) 2 ml BID FLUSH 10/21/16 21:00 10/22/16 20:53 (Tylenol) 650 mg Q4H PRN PO 10/21/16 20:15 10/24/16 09:36 (Zofran Inj) 4 mg Q6H PRN IVP 10/21/16 20:15 (Dulcolax Supp) 10 mg DAILY PRN [place] 10/21/16 20:15 (Narcan Inj) 0.4 mg UNSCH PRN IV 10/21/16 20:15 (Robitussin Liq) 100 mg Q4H PRN PO 10/21/16 20:30 (Benadryl) 25 mg Q6H PRN PO 10/21/16 20:30 (Bactrim Ds 800-160 Mg) 1 tab Q12HR PO 10/22/16 12:00 10/29/16 11:59 10/24/16 09:35 (Ativan) 0.5 mg Q12HR PO 10/22/16 21:00 10/24/16 09:35 (Protonix) 40 mg DAILY PO 10/23/16 09:00 10/24/16 09:35 (ZyPREXA INJ) 10 mg Q8HR PRN IM 10/22/16 10:15 (SEROquel) 25 mg BID@09,12 PO 10/22/16 12:00 10/24/16 09:35 (KCl) 10 meq DAILY PO 10/23/16 11:00 10/24/16 09:35 (Prinivil) 20 mg DAILY PO 10/23/16 11:00 10/24/16 09:35 (Depakote Er) 500 mg DAILY PO 10/23/16 13:00 10/24/16 09:35 (Ativan) 0.5 mg Q6H PRN PO 10/23/16 20:15 A/P Assessment and Plan SUICIDAL ATTEMPT AMS DUE TO UTI AND OR PERSONALITY DISORDER CHRONIC TID XANAX USE UTI HYPOKALEMIA ASTHMA HTN, URGENT SZ [facility] FIBROMYALGIA PLAN: 3008 AND MEDS RX IN CHART AND READY TO DC IF SNF ACCEPTS HER. INCREASED ANTIHYPERTENSIVES CHANGED TO PO ABX PSYCH CONSULT KCL QD NEURO CONSULT FOR KEPPRA ALTERNATIVES PLEASE SEE MY ORDERS Adonis Verdin MD Oct 24, 2016 12:49
[2016-10-24 16:00] VITALS: BP 121/60; PULSE 94; RESP 16; TEMP 99.1; O2SAT 90
[2016-10-24 21:20] VITALS: BP 155/67; PULSE 91; RESP 18; TEMP 98.9; O2SAT 93
[2016-10-24 23:41] VITALS: BP 163/77; PULSE 84; RESP 18; TEMP 98.7; O2SAT 94
[2016-10-25 04:01] VITALS: BP 166/75; PULSE 84; RESP 18; TEMP 98.5; O2SAT 93
[2016-10-25] MEDS: SODIUM CHLORIDE 0.9% FLUSH 5 ML FLUSH FLUSH SCH ×2 (07:53→20:49)
[2016-10-25 08:29] VITALS: BP 106/62; PULSE 75; RESP 18; TEMP 97.8; O2SAT 93
[2016-10-25] MEDS: DOCUSATE SODIUM 100 MG CAP PO SCH ×2 (09:00→20:49)
[2016-10-25 09:08] LABS: AUTOMATED NEUTROPHIL # 8.2 TH/MM3 (1.8-7.7); BASOPHIL # 0.1 TH/MM3 (0-0.2); BASOPHIL % 0.7 % (0.0-2.0); EOSINOPHIL # 0.4 TH/MM3 (0-0.4); EOSINOPHIL % 3.6 % (0.0-4.0); HEMATOCRIT 37.6 % (35.0-46.0); HEMO FLAGS DIFF FINAL; LYMPHOCYTE # 2.3 TH/MM3 (1.0-4.8); MEAN CELL VOLUME 84.8 FL (80.0-100.0); MEAN CORPUSCULAR HEMOGLOBIN 27.4 PG (27.0-34.0); MEAN CORPUSCULAR HGB CONC 32.3 % (32.0-36.0); MONO % 7.9 % (0.0-8.0); NEUT % 68.8 % (16.0-70.0); PLATELET COUNT 410 TH/MM3 (150-450); RED BLOOD COUNT 4.44 MIL/MM3 (4.00-5.30); RED CELL DISTRIBUTION WIDTH 15.1 % (11.6-17.2)
[2016-10-25 09:37] LABS: BICARBONATE 24.9 MEQ/L (21.0-32.0); POTASSIUM 3.6 MEQ/L (3.5-5.1)
--- NOTE | 2016-10-25 09:48 | HHI.FPPN ---
Subjective Remarks CALM D/W RN Objective Vitals Vital Signs Date Time Temp Pulse Resp B/P Pulse Ox O2 Delivery O2 Flow Rate FiO2 10/25/16 08:29 97.8 75 18 106/62 93 10/25/16 04:01 98.5 84 18 166/75 93 10/24/16 23:41 98.7 84 18 163/77 94 10/24/16 21:20 98.9 91 18 155/67 93 10/24/16 16:00 99.1 94 16 121/60 90 10/24/16 11:35 98.4 97 16 129/69 91 Result Diagram: 10/25/1682710/25/16827 Objective Remarks GENERAL: SKIN: Warm and dry. HEAD: Atraumatic. Normocephalic. EYES: Pupils equal and round. No scleral icterus. No injection or drainage. ENT: No nasal bleeding or discharge. Mucous membranes pink and moist. NECK: Trachea midline. No JVD. CARDIOVASCULAR: Regular rate and rhythm. RESPIRATORY: No accessory muscle use. Clear to auscultation. Breath sounds equal bilaterally. GASTROINTESTINAL: Abdomen soft, non-tender, nondistended. Hepatic and splenic margins not palpable. MUSCULOSKELETAL: Extremities without clubbing, cyanosis, or edema. No obvious deformities. NEUROLOGICAL: Awake and alert. No obvious cranial nerve deficits. Motor grossly within normal limits. 3 out of 5 muscle strength in the arms and legs. Normal speech. PSYCHIATRIC: Appropriate mood and affect; insight and judgment normal. Medications and IVs Current Medications Medications (Trade) Dose Ordered Sig/Akila Route Start Time Stop Time Status Last Admin (Ecotrin Ec) 81 mg DAILY PO 10/22/16 09:00 10/24/16 09:35 (Colace) 100 mg BID PO 10/21/16 21:00 10/24/16 20:35 (Neurontin) 300 mg BID PO 10/21/16 21:00 10/24/16 20:35 (Neurontin) 600 mg HS PO 10/21/16 21:00 10/23/16 20:23 (Keppra) 500 mg BID PO 10/21/16 21:00 10/24/16 09:36 (Milk Of Magnesia Liq) 30 ml HS PRN PO 10/21/16 20:00 (Antivert) 25 mg Q6H PRN PO 10/21/16 20:00 (Phenergan) 25 mg Q6H PRN PO 10/21/16 20:00 (NS Flush) 2 ml UNSCH PRN FLUSH 10/21/16 20:15 (NS Flush) 2 ml BID FLUSH 10/21/16 21:00 10/22/16 20:53 (Tylenol) 650 mg Q4H PRN PO 10/21/16 20:15 10/24/16 09:36 (Zofran Inj) 4 mg Q6H PRN IVP 10/21/16 20:15 (Dulcolax Supp) 10 mg DAILY PRN [place] 10/21/16 20:15 (Narcan Inj) 0.4 mg UNSCH PRN IV 10/21/16 20:15 (Robitussin Liq) 100 mg Q4H PRN PO 10/21/16 20:30 (Benadryl) 25 mg Q6H PRN PO 10/21/16 20:30 (Bactrim Ds 800-160 Mg) 1 tab Q12HR PO 10/22/16 12:00 10/29/16 11:59 10/24/16 20:35 (Ativan) 0.5 mg Q12HR PO 10/22/16 21:00 10/24/16 20:35 (Protonix) 40 mg DAILY PO 10/23/16 09:00 10/24/16 09:35 (ZyPREXA INJ) 10 mg Q8HR PRN IM 10/22/16 10:15 (SEROquel) 25 mg BID@09,12 PO 10/22/16 12:00 10/24/16 14:05 (KCl) 10 meq DAILY PO 10/23/16 11:00 10/24/16 09:35 (Prinivil) 20 mg DAILY PO 10/23/16 11:00 10/24/16 09:35 (Depakote Er) 500 mg DAILY PO 10/23/16 13:00 10/24/16 09:35 (Ativan) 0.5 mg Q6H PRN PO 10/23/16 20:15 A/P Assessment and Plan SUICIDAL ATTEMPT AMS DUE TO UTI AND OR PERSONALITY DISORDER CHRONIC TID XANAX USE UTI HYPOKALEMIA ASTHMA HTN, URGENT SZ [facility] FIBROMYALGIA PLAN: 3008 AND MEDS IN CHART AND READY TO DC IF SNF ACCEPTS HER. PASSR PENDING. CM FOLLOWING. INCREASED ANTIHYPERTENSIVES CHANGED TO PO ABX PSYCH CONSULT KCL QD NEURO CONSULT FOR KEPPRA ALTERNATIVES PLEASE SEE MY ORDERS Adonis Verdin MD Oct 25, 2016 09:48
[2016-10-25] MEDS: DIVALPROEX SODIUM E.R. 500 MG TAB PO SCH (10:24)
[2016-10-25] MEDS: LORazepam 0.5 MG TAB PO SCH ×2 (10:25→20:49)
[2016-10-25] MEDS: QUEtiapine FUMARATE 25 MG TAB PO SCH ×2 (10:25→13:27)
[2016-10-25] MEDS: ASPIRIN EC 81 MG TABEC PO SCH (10:25)
[2016-10-25] MEDS: PANTOPRAZOLE SOD 40 MG DELAYED RELEASE TAB PO SCH (10:25)
[2016-10-25] MEDS: SULFAMETHOXAZOLE-TRIMETHOPRIM DS 800-160 MG TAB PO SCH ×2 (10:25→20:49)
[2016-10-25] MEDS: GABAPENTIN 300 MG CAP PO SCH ×3 (10:25→20:49)
[2016-10-25] MEDS: POTASSIUM CHLORIDE 10 MEQ CONTROLLED RELEASE TAB PO SCH (10:26)
[2016-10-25] MEDS: levETIRAcetam 500 MG TAB PO SCH ×2 (10:26→20:49)
[2016-10-25] MEDS: LISINOPRIL 20 MG TAB PO SCH (10:28)
[2016-10-25 11:50] VITALS: BP 151/64; PULSE 104
[2016-10-25 15:58] VITALS: BP 140/70; PULSE 101; RESP 18; TEMP 97.8; O2SAT 95
[2016-10-25] MEDS: ACETAMINOPHEN 325 MG TAB PO PRN (17:22)
[2016-10-25 20:00] VITALS: BP 164/72; PULSE 90; RESP 18; TEMP 98.3; O2SAT 94
[2016-10-26] VITALS: BP 128/56; PULSE 61; RESP 17; TEMP 98.8; O2SAT 92
[2016-10-26 04:00] VITALS: BP 105/59; PULSE 64; RESP 17; TEMP 98; O2SAT 93
[2016-10-26 06:19] LABS: AUTOMATED NEUTROPHIL # 5.4 TH/MM3 (1.8-7.7); BASOPHIL % 0.3 % (0.0-2.0); EOSINOPHIL # 0.5 TH/MM3 (0-0.4); EOSINOPHIL % 5.3 % (0.0-4.0); HEMATOCRIT 37.5 % (35.0-46.0); HEMO FLAGS DIFF FINAL; LYMPH % 24.1 % (9.0-44.0); LYMPHOCYTE # 2.1 TH/MM3 (1.0-4.8); MEAN CELL VOLUME 84.9 FL (80.0-100.0); MEAN CORPUSCULAR HEMOGLOBIN 28.3 PG (27.0-34.0); MEAN CORPUSCULAR HGB CONC 33.3 % (32.0-36.0); MONO % 9.4 % (0.0-8.0); NEUT % 60.9 % (16.0-70.0); PLATELET COUNT 400 TH/MM3 (150-450); RED BLOOD COUNT 4.42 MIL/MM3 (4.00-5.30); RED CELL DISTRIBUTION WIDTH 15.1 % (11.6-17.2); WHITE BLOOD COUNT 8.8 TH/MM3 (4.0-11.0)
[2016-10-26 06:47] LABS: BICARBONATE 25.2 MEQ/L (21.0-32.0); POTASSIUM 3.7 MEQ/L (3.5-5.1)
[2016-10-26 08:00] VITALS: BP 159/73; PULSE 92; RESP 20; TEMP 97.8; O2SAT 93
[2016-10-26] MEDS: SODIUM CHLORIDE 0.9% FLUSH 5 ML FLUSH FLUSH SCH ×2 (09:00→20:12)
[2016-10-26] MEDS: QUEtiapine FUMARATE 25 MG TAB PO SCH ×2 (09:04→11:06)
[2016-10-26] MEDS: levETIRAcetam 500 MG TAB PO SCH ×2 (09:04→20:11)
[2016-10-26] MEDS: DIVALPROEX SODIUM E.R. 500 MG TAB PO SCH (09:04)
[2016-10-26] MEDS: LORazepam 0.5 MG TAB PO SCH ×2 (09:05→20:12)
[2016-10-26] MEDS: ASPIRIN EC 81 MG TABEC PO SCH (09:05)
[2016-10-26] MEDS: SULFAMETHOXAZOLE-TRIMETHOPRIM DS 800-160 MG TAB PO SCH ×2 (09:05→20:10)
[2016-10-26] MEDS: LISINOPRIL 20 MG TAB PO SCH (09:05)
[2016-10-26] MEDS: GABAPENTIN 300 MG CAP PO SCH ×3 (09:05→20:17)
[2016-10-26] MEDS: DOCUSATE SODIUM 100 MG CAP PO SCH ×2 (09:05→20:10)
[2016-10-26] MEDS: PANTOPRAZOLE SOD 40 MG DELAYED RELEASE TAB PO SCH (09:05)
[2016-10-26] MEDS: POTASSIUM CHLORIDE 10 MEQ CONTROLLED RELEASE TAB PO SCH (09:05)
--- NOTE | 2016-10-26 11:05 | EKG ---
Date Performed: 10/25/2016 Time Performed: 02:57:48 PTAGE: 81 years EKG: Sinus rhythm NORMAL ECG PREVIOUS TRACING : 10/18/2016 04.30 DOCTOR: Sunny Mac Interpretating Date/Time 10/26/2016 11:02:48
[2016-10-26 11:42] VITALS: BP 141/65; PULSE 87; RESP 20; TEMP 98.7; O2SAT 90
--- NOTE | 2016-10-26 12:30 | HHI.PR ---
Subjective Remarks Patient at the margin of the bed. She is covered by the bed sheet, gown is on the floor. Patient is not keeping gown on. She pleasantly confused. Poor judgement. She has no complaints. Follows commands. Objective Vitals Vital Signs Date Time Temp Pulse Resp B/P Pulse Ox O2 Delivery O2 Flow Rate FiO2 10/26/16 11:42 98.7 87 20 141/65 90 10/26/16 08:00 97.8 92 20 159/73 93 10/26/16 04:00 98.0 64 17 105/59 93 10/26/16 00:00 98.8 61 17 128/56 92 10/25/16 20:00 98.3 90 18 164/72 94 10/25/16 15:58 97.8 101 18 140/70 95 I/O 10/25/16 10/25/16 10/25/16 10/26/16 10/26/16 10/26/16 07:00 15:00 23:00 07:00 15:00 23:00 Intake Total 120 ml 160 ml Output Total 250 ml Balance -130 ml 160 ml Intake Oral 120 ml 160 ml Output Urine Total 250 ml # Voids 4 Result Diagram: 10/26/16 0522 10/26/16 0522 Imaging Last Impressions Head CT 10/21/16 0000 Signed Impressions: Service Date/Time: Friday, October 21, 2016 16:49 - CONCLUSION: No acute intracranial process. Hermelindo Espitia MD Chest X-Ray 10/21/16 0000 Signed Impressions: Service Date/Time: Friday, October 21, 2016 16:33 - CONCLUSION: 1. Stable elevation of the right hemidiaphragm with minimal bibasilar atelectatic changes. 2. No confluent infiltrate. Hermelindo Espitia MD Objective Remarks GENERAL: This is a well-nourished, well-developed patient, in no apparent distress. SKIN: No rashes, ecchymoses or lesions. Cool and dry. HEAD: Atraumatic. Normocephalic. No temporal or scalp tenderness. EYES: Pupils equal round and reactive. Extraocular motions intact. No scleral icterus. No injection or drainage. ENT: Nose without bleeding, purulent drainage or septal hematoma. Throat without erythema, tonsillar hypertrophy or exudate. Uvula midline. Airway patent. NECK: Trachea midline. No JVD or lymphadenopathy. Supple, nontender, no meningeal signs. CARDIOVASCULAR: Regular rate and rhythm without murmurs, gallops, or rubs. RESPIRATORY: Clear to auscultation. Breath sounds equal bilaterally. No wheezes , rales, or rhonchi. GASTROINTESTINAL: Abdomen soft, non-tender, nondistended. No hepato-splenomegaly , or palpable masses. No guarding. MUSCULOSKELETAL: Extremities without clubbing, cyanosis, or edema. No joint tenderness, effusion, or edema noted. No calf tenderness. Negative Homans sign bilaterally. NEUROLOGICAL: Awake and alert. Cranial nerves II through XII intact. Motor and sensory grossly within normal limits. Five out of 5 muscle strength in all muscle groups. Normal speech. A/P Assessment and Plan SUICIDAL ATTEMPT AMS CHRONIC TID XANAX USE UTI HYPOKALEMIA ASTHMA HTN SZ P[facility]S FIBROMYALGIA Cont PO antibiotics Monitor and replace electrolytes. Medically cleared to psych unit. DC to inpatient psych Katherine Storey MD Oct 26, 2016 12:30
[2016-10-26 16:00] VITALS: BP 155/74; PULSE 82; RESP 20; TEMP 98; O2SAT 95
[2016-10-26 20:00] VITALS: BP 129/62; PULSE 82; RESP 18; TEMP 98.7; O2SAT 92
[2016-10-26] MEDS ORDERED: LORazepam 2 MG/ML VIAL IV PUSH ONE (22:15)
[2016-10-27] VITALS: BP 120/56; PULSE 80; RESP 18; TEMP 98.3; O2SAT 96
[2016-10-27 04:00] VITALS: BP 161/70; PULSE 94; RESP 18; TEMP 98.3; O2SAT 94
[2016-10-27 08:00] VITALS: BP 144/67; PULSE 96; RESP 20; TEMP 98.1; O2SAT 93
[2016-10-27] MEDS: SODIUM CHLORIDE 0.9% FLUSH 5 ML FLUSH FLUSH SCH ×2 (09:00→19:54)
[2016-10-27] MEDS: LORazepam 0.5 MG TAB PO SCH ×2 (10:20→19:54)
[2016-10-27] MEDS: LISINOPRIL 20 MG TAB PO SCH (10:20)
[2016-10-27] MEDS: POTASSIUM CHLORIDE 10 MEQ CONTROLLED RELEASE TAB PO SCH (10:20)
[2016-10-27] MEDS: levETIRAcetam 500 MG TAB PO SCH ×2 (10:20→19:53)
[2016-10-27] MEDS: SULFAMETHOXAZOLE-TRIMETHOPRIM DS 800-160 MG TAB PO SCH ×2 (10:21→19:53)
[2016-10-27] MEDS: DIVALPROEX SODIUM E.R. 500 MG TAB PO SCH (10:21)
[2016-10-27] MEDS: GABAPENTIN 300 MG CAP PO SCH ×3 (10:21→19:55)
[2016-10-27] MEDS: ASPIRIN EC 81 MG TABEC PO SCH (10:21)
[2016-10-27] MEDS: DOCUSATE SODIUM 100 MG CAP PO SCH ×2 (10:21→19:53)
[2016-10-27] MEDS: PANTOPRAZOLE SOD 40 MG DELAYED RELEASE TAB PO SCH (10:21)
[2016-10-27] MEDS: QUEtiapine FUMARATE 25 MG TAB PO SCH ×2 (10:21→11:43)
[2016-10-27 12:00] VITALS: BP 135/61; PULSE 104; RESP 20; TEMP 98; O2SAT 92
--- NOTE | 2016-10-27 13:24 | HHI.PR ---
Subjective Remarks In her civil clothes, behaviour much better. Family visit today. She is pleasantly confused. No complaints at this time. Objective Vitals Vital Signs Date Time Temp Pulse Resp B/P Pulse Ox O2 Delivery O2 Flow Rate FiO2 10/27/16 09:00 Room Air 10/27/16 08:00 98.1 96 20 144/67 93 10/27/16 04:00 98.3 94 18 161/70 94 10/27/16 00:00 98.3 80 18 120/56 96 10/26/16 20:00 98.7 82 18 129/62 92 10/26/16 19:58 Room Air 10/26/16 16:00 98.0 82 20 155/74 95 I/O 10/26/16 10/26/16 10/26/16 10/27/16 10/27/16 10/27/16 07:00 15:00 23:00 07:00 15:00 23:00 Intake Total 160 ml 0 ml 240 ml 120 ml Balance 160 ml 0 ml 240 ml 120 ml Intake Oral 160 ml 0 ml 240 ml 120 ml # Voids 4 4 2 2 # Bowel Movements 2 0 0 Result Diagram: 10/26/16 0522 10/26/16 0522 Imaging Last Impressions Head CT 10/21/16 0000 Signed Impressions: Service Date/Time: Friday, October 21, 2016 16:49 - CONCLUSION: No acute intracranial process. Hermelindo Espitia MD Chest X-Ray 10/21/16 0000 Signed Impressions: Service Date/Time: Friday, October 21, 2016 16:33 - CONCLUSION: 1. Stable elevation of the right hemidiaphragm with minimal bibasilar atelectatic changes. 2. No confluent infiltrate. Hermelindo Espitia MD Objective Remarks GENERAL: This is a well-nourished, well-developed patient, in no apparent distress. SKIN: No rashes, ecchymoses or lesions. Cool and dry. HEAD: Atraumatic. Normocephalic. No temporal or scalp tenderness. EYES: Pupils equal round and reactive. Extraocular motions intact. No scleral icterus. No injection or drainage. ENT: Nose without bleeding, purulent drainage or septal hematoma. Throat without erythema, tonsillar hypertrophy or exudate. Uvula midline. Airway patent. NECK: Trachea midline. No JVD or lymphadenopathy. Supple, nontender, no meningeal signs. CARDIOVASCULAR: Regular rate and rhythm without murmurs, gallops, or rubs. RESPIRATORY: Clear to auscultation. Breath sounds equal bilaterally. No wheezes , rales, or rhonchi. GASTROINTESTINAL: Abdomen soft, non-tender, nondistended. No hepato-splenomegaly , or palpable masses. No guarding. MUSCULOSKELETAL: Extremities without clubbing, cyanosis, or edema. No joint tenderness, effusion, or edema noted. No calf tenderness. Negative Homans sign bilaterally. NEUROLOGICAL: Awake and alert. Cranial nerves II through XII intact. Motor and sensory grossly within normal limits. Five out of 5 muscle strength in all muscle groups. Normal speech. A/P Assessment and Plan SUICIDAL ATTEMPT AMS CHRONIC TID XANAX USE UTI HYPOKALEMIA ASTHMA HTN SZ PARKINSONS FIBROMYALGIA Cont PO antibiotics Monitor and replace electrolytes. Medically cleared for DC. Psychiatry evaluated patient and doesn't meets inpatient criteria for psych unit. DC to SNF. Katherine Storey MD Oct 27, 2016 13:24
[2016-10-27 16:00] VITALS: BP 105/53; PULSE 95; RESP 20; TEMP 97.7; O2SAT 92
[2016-10-27 20:00] VITALS: BP 127/63; PULSE 87; RESP 18; TEMP 97.5; O2SAT 97
[2016-10-28 04:00] VITALS: BP 100/58; PULSE 62; RESP 18; TEMP 97.2; O2SAT 96
[2016-10-28 08:00] VITALS: BP 95/47; PULSE 73; RESP 18; TEMP 97.3; O2SAT 95
[2016-10-28] MEDS: SULFAMETHOXAZOLE-TRIMETHOPRIM DS 800-160 MG TAB PO SCH ×2 (08:09→23:10)
[2016-10-28] MEDS: QUEtiapine FUMARATE 25 MG TAB PO SCH ×2 (08:09→12:00)
[2016-10-28] MEDS: LORazepam 0.5 MG TAB PO SCH ×2 (08:09→23:11)
[2016-10-28] MEDS: DIVALPROEX SODIUM E.R. 500 MG TAB PO SCH (08:09)
[2016-10-28] MEDS: levETIRAcetam 500 MG TAB PO SCH ×2 (08:09→23:10)
[2016-10-28] MEDS: LISINOPRIL 20 MG TAB PO SCH (08:09)
[2016-10-28] MEDS: DOCUSATE SODIUM 100 MG CAP PO SCH ×2 (08:09→23:11)
[2016-10-28] MEDS: PANTOPRAZOLE SOD 40 MG DELAYED RELEASE TAB PO SCH (08:09)
[2016-10-28] MEDS: ASPIRIN EC 81 MG TABEC PO SCH (08:10)
[2016-10-28] MEDS: POTASSIUM CHLORIDE 10 MEQ CONTROLLED RELEASE TAB PO SCH (08:10)
[2016-10-28] MEDS: SODIUM CHLORIDE 0.9% FLUSH 5 ML FLUSH FLUSH SCH ×2 (08:11→21:00)
[2016-10-28] MEDS: GABAPENTIN 300 MG CAP PO SCH ×3 (09:00→23:11)
--- NOTE | 2016-10-28 09:49 | HHI.FPPN ---
Subjective Remarks CALM NO C/O D/W RN Objective Vitals Vital Signs Date Time Temp Pulse Resp B/P Pulse Ox O2 Delivery O2 Flow Rate FiO2 10/28/16 04:00 97.2 62 18 100/58 96 10/27/16 20:52 Room Air 10/27/16 20:00 97.5 87 18 127/63 97 10/27/16 16:00 97.7 95 20 105/53 92 10/27/16 12:00 98.0 104 20 135/61 92 I/O 10/27/16 10/27/16 10/27/16 10/28/16 10/28/16 10/28/16 07:00 15:00 23:00 07:00 15:00 23:00 Intake Total 120 ml 480 ml 120 ml Balance 120 ml 480 ml 120 ml Intake Oral 120 ml 480 ml 120 ml # Voids 2 1 1 # Bowel Movements 0 0 0 Result Diagram: 10/26/1652110/26/16521 Objective Remarks GENERAL: SKIN: Warm and dry. HEAD: Atraumatic. Normocephalic. EYES: Pupils equal and round. No scleral icterus. No injection or drainage. ENT: No nasal bleeding or discharge. Mucous membranes pink and moist. NECK: Trachea midline. No JVD. CARDIOVASCULAR: Regular rate and rhythm. RESPIRATORY: No accessory muscle use. Clear to auscultation. Breath sounds equal bilaterally. GASTROINTESTINAL: Abdomen soft, non-tender, nondistended. Hepatic and splenic margins not palpable. MUSCULOSKELETAL: Extremities without clubbing, cyanosis, or edema. No obvious deformities. NEUROLOGICAL: Awake and alert. No obvious cranial nerve deficits. Motor grossly within normal limits. 3 out of 5 muscle strength in the arms and legs. Normal speech. PSYCHIATRIC: Appropriate mood and affect; insight and judgment normal. Medications and IVs Current Medications Medications (Trade) Dose Ordered Sig/Akila Route Start Time Stop Time Status Last Admin (Ecotrin Ec) 81 mg DAILY PO 10/22/16 09:00 10/28/16 08:10 (Colace) 100 mg BID PO 10/21/16 21:00 10/28/16 08:09 (Neurontin) 300 mg BID PO 10/21/16 21:00 10/27/16 10:21 (Neurontin) 600 mg HS PO 10/21/16 21:00 10/27/16 19:55 (Keppra) 500 mg BID PO 10/21/16 21:00 10/28/16 08:09 (Milk Of Magnesia Liq) 30 ml HS PRN PO 10/21/16 20:00 (Antivert) 25 mg Q6H PRN PO 10/21/16 20:00 (Phenergan) 25 mg Q6H PRN PO 10/21/16 20:00 (NS Flush) 2 ml UNSCH PRN FLUSH 10/21/16 20:15 (NS Flush) 2 ml BID FLUSH 10/21/16 21:00 10/28/16 08:11 (Tylenol) 650 mg Q4H PRN PO 10/21/16 20:15 10/25/16 17:22 (Zofran Inj) 4 mg Q6H PRN IVP 10/21/16 20:15 (Dulcolax Supp) 10 mg DAILY PRN [place] 10/21/16 20:15 (Narcan Inj) 0.4 mg UNSCH PRN IV 10/21/16 20:15 (Robitussin Liq) 100 mg Q4H PRN PO 10/21/16 20:30 (Benadryl) 25 mg Q6H PRN PO 10/21/16 20:30 (Bactrim Ds 800-160 Mg) 1 tab Q12HR PO 10/22/16 12:00 10/29/16 11:59 10/28/16 08:09 (Ativan) 0.5 mg Q12HR PO 10/22/16 21:00 10/28/16 08:09 (Protonix) 40 mg DAILY PO 10/23/16 09:00 10/28/16 08:09 (ZyPREXA INJ) 10 mg Q8HR PRN IM 10/22/16 10:15 (SEROquel) 25 mg BID@09,12 PO 10/22/16 12:00 10/28/16 08:09 (KCl) 10 meq DAILY PO 10/23/16 11:00 10/28/16 08:10 (Prinivil) 20 mg DAILY PO 10/23/16 11:00 10/28/16 08:09 (Depakote Er) 500 mg DAILY PO 10/23/16 13:00 10/28/16 08:09 (Ativan) 0.5 mg Q6H PRN PO 10/23/16 20:15 A/P Assessment and Plan SUICIDAL ATTEMPT AMS DUE TO UTI AND OR PERSONALITY DISORDER CHRONIC TID XANAX USE UTI HYPOKALEMIA ASTHMA HTN, URGENT SZ [facility] FIBROMYALGIA PLAN: 3008 AND MEDS IN CHART AND READY TO DC IF SNF ACCEPTS HER. PASSR PENDING. CM FOLLOWING. INCREASED ANTIHYPERTENSIVES CHANGED TO PO ABX PSYCH CONSULT KCL QD NEURO CONSULT FOR KEPPRA ALTERNATIVES PLEASE SEE MY ORDERS Adonis Verdin MD Oct 28, 2016 09:49
[2016-10-28 12:00] VITALS: BP 119/59; PULSE 88; RESP 18; TEMP 98; O2SAT 94
[2016-10-28 16:00] VITALS: BP 131/59; PULSE 96; RESP 20; TEMP 98; O2SAT 96
[2016-10-28 20:22] VITALS: BP 119/58; PULSE 84; RESP 18; TEMP 97.9; O2SAT 95
[2016-10-28 23:28] VITALS: BP 106/56; PULSE 75; RESP 18; TEMP 97.2; O2SAT 95
[2016-10-29 03:50] VITALS: BP 92/49; PULSE 68; RESP 18; TEMP 98.3; O2SAT 92
[2016-10-29 08:03] VITALS: BP 118/52; PULSE 79; RESP 18; TEMP 98.3; O2SAT 93
[2016-10-29] MEDS: LORazepam 0.5 MG TAB PO SCH (09:53)
[2016-10-29] MEDS: SULFAMETHOXAZOLE-TRIMETHOPRIM DS 800-160 MG TAB PO SCH (09:53)
[2016-10-29] MEDS: DIVALPROEX SODIUM E.R. 500 MG TAB PO SCH (09:53)
[2016-10-29] MEDS: levETIRAcetam 500 MG TAB PO SCH (09:53)
[2016-10-29] MEDS: DOCUSATE SODIUM 100 MG CAP PO SCH (09:53)
[2016-10-29] MEDS: QUEtiapine FUMARATE 25 MG TAB PO SCH (09:53)
[2016-10-29] MEDS: GABAPENTIN 300 MG CAP PO SCH (09:53)
[2016-10-29] MEDS: LISINOPRIL 20 MG TAB PO SCH (09:53)
[2016-10-29] MEDS: PANTOPRAZOLE SOD 40 MG DELAYED RELEASE TAB PO SCH (09:54)
[2016-10-29] MEDS: ASPIRIN EC 81 MG TABEC PO SCH (09:54)
[2016-10-29] MEDS: POTASSIUM CHLORIDE 10 MEQ CONTROLLED RELEASE TAB PO SCH (09:54)
--- NOTE | 2016-10-29 10:57 | HHI.FPPN ---
Subjective Remarks sitting up alert no c/o d/w RN Objective Vitals Vital Signs Date Time Temp Pulse Resp B/P Pulse Ox O2 Delivery O2 Flow Rate FiO2 10/29/16 08:03 98.3 79 18 118/52 93 10/29/16 03:50 98.3 68 18 92/49 92 10/28/16 23:28 97.2 75 18 106/56 95 10/28/16 20:45 Room Air 10/28/16 20:22 97.9 84 18 119/58 95 10/28/16 16:00 98.0 96 20 131/59 96 10/28/16 12:00 98.0 88 18 119/59 94 I/O 10/28/16 10/28/16 10/28/16 10/29/16 10/29/16 10/29/16 07:00 15:00 23:00 07:00 15:00 23:00 Intake Total 480 ml 480 ml 120 ml Output Total 400 ml 300 ml 600 ml Balance 80 ml 180 ml -480 ml Intake Oral 480 ml 480 ml 120 ml Output Urine Total 400 ml 300 ml 600 ml # Bowel Movements 1 0 0 Result Diagram: 10/26/1652110/26/16521 Objective Remarks GENERAL: SKIN: Warm and dry. HEAD: Atraumatic. Normocephalic. EYES: Pupils equal and round. No scleral icterus. No injection or drainage. ENT: No nasal bleeding or discharge. Mucous membranes pink and moist. NECK: Trachea midline. No JVD. CARDIOVASCULAR: Regular rate and rhythm. RESPIRATORY: No accessory muscle use. Clear to auscultation. Breath sounds equal bilaterally. GASTROINTESTINAL: Abdomen soft, non-tender, nondistended. Hepatic and splenic margins not palpable. MUSCULOSKELETAL: Extremities without clubbing, cyanosis, or edema. No obvious deformities. NEUROLOGICAL: Awake and alert. No obvious cranial nerve deficits. Motor grossly within normal limits. 3 out of 5 muscle strength in the arms and legs. Normal speech. PSYCHIATRIC: Appropriate mood and affect; insight and judgment normal. Medications and IVs Current Medications Medications (Trade) Dose Ordered Sig/Akila Route Start Time Stop Time Status Last Admin (Ecotrin Ec) 81 mg DAILY PO 10/22/16 09:00 10/29/16 09:54 (Colace) 100 mg BID PO 10/21/16 21:00 10/29/16 09:53 (Neurontin) 300 mg BID PO 10/21/16 21:00 10/29/16 09:53 (Neurontin) 600 mg HS PO 10/21/16 21:00 10/28/16 23:11 (Keppra) 500 mg BID PO 10/21/16 21:00 10/29/16 09:53 (Milk Of Magnesia Liq) 30 ml HS PRN PO 10/21/16 20:00 (Antivert) 25 mg Q6H PRN PO 10/21/16 20:00 (Phenergan) 25 mg Q6H PRN PO 10/21/16 20:00 (NS Flush) 2 ml UNSCH PRN FLUSH 10/21/16 20:15 (NS Flush) 2 ml BID FLUSH 10/21/16 21:00 10/28/16 08:11 (Tylenol) 650 mg Q4H PRN PO 10/21/16 20:15 10/25/16 17:22 (Zofran Inj) 4 mg Q6H PRN IVP 10/21/16 20:15 (Dulcolax Supp) 10 mg DAILY PRN LA 10/21/16 20:15 (Narcan Inj) 0.4 mg UNSCH PRN IV 10/21/16 20:15 (Robitussin Liq) 100 mg Q4H PRN PO 10/21/16 20:30 (Benadryl) 25 mg Q6H PRN PO 10/21/16 20:30 (Bactrim Ds 800-160 Mg) 1 tab Q12HR PO 10/22/16 12:00 10/29/16 11:59 10/29/16 09:53 (Ativan) 0.5 mg Q12HR PO 10/22/16 21:00 10/29/16 09:53 (Protonix) 40 mg DAILY PO 10/23/16 09:00 10/29/16 09:54 (ZyPREXA INJ) 10 mg Q8HR PRN IM 10/22/16 10:15 (SEROquel) 25 mg BID@09,12 PO 10/22/16 12:00 10/29/16 09:53 (KCl) 10 meq DAILY PO 10/23/16 11:00 10/29/16 09:54 (Prinivil) 20 mg DAILY PO 10/23/16 11:00 10/29/16 09:53 (Depakote Er) 500 mg DAILY PO 10/23/16 13:00 10/29/16 09:53 (Ativan) 0.5 mg Q6H PRN PO 10/23/16 20:15 10/28/16 11:54 A/P Assessment and Plan SUICIDAL ATTEMPT AMS DUE TO UTI AND OR PERSONALITY DISORDER CHRONIC TID XANAX USE UTI HYPOKALEMIA ASTHMA HTN, URGENT SZ [facility] FIBROMYALGIA PLAN: 3008 AND MEDS IN CHART AND READY TO DC IF SNF ACCEPTS HER. PASSR PENDING. CM FOLLOWING. INCREASED ANTIHYPERTENSIVES CHANGED TO PO ABX PSYCH CONSULT KCL QD NEURO CONSULT FOR [facility] PLEASE SEE MY ORDERS Adonis Verdin MD Oct 29, 2016 10:57
[2016-10-29 12:04] VITALS: BP 122/54; PULSE 80; RESP 18; TEMP 98.5; O2SAT 94
--- NOTE | 2016-11-17 20:54 | MD ---
cc: JORDAN WIN ADMISSION DATE: 10/23/2016 DISCHARGE DATE: 10/29/2016 CONSULTATIONS Frederick Casarez MD Psychiatry, [place] PROCEDURES None. ADMISSION DIAGNOSIS 1. Suicidal ideation. DISCHARGE DIAGNOSIS 1. Suicidal ideation. 2. 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 3. Chronic Xanax usage. 4. UTI. 5. Hypokalemia. 6. Asthma. 7. Hypertension. 8. Seizure. 9. Parkinson's disease. 10. Fibromyalgia. HOSPITAL COURSE Fernanda Romero is an 81-year-old female who was residing at [facility]. She was making suicidal statements and subsequently transferred to [facility]. She had been acting out at the nursing facility and was found down on the floor on numerous occasions and apparently was making gestures of cutting her wrists with bottle caps. She initially was found to have UTI and appears likely with asymptomatic bacteriuria. She nevertheless was treated with antibiotics appropriately. She is found to have hypokalemia and urgent hypertension. She was seen by psychiatry and they cleared her for discharge. I increased her antihypertensives and extra on potassium daily. She was changed to p.o. antibiotics and was seen by neurology ___ her alternatives that appears this was exacerbating her psychosis and/or her personality disorder. She would did not recall the events that ended up with her admission and was always very apologetic and was wanting to go back to the nursing facility. She had no further suicidal gestures and states that she would never be suicidal and had no suicidal plan. She was subsequent discharged back to the [facility]. MEDICATIONS Reviewed in the chart. 1. Keppra ___. 2. Depakote, started. DISPOSITION Discharge back to [facility]. PROGNOSIS Good. Jordan Win MD RP/EO /3:56 PM /8:44 PM
== END 2016-10-29 14:00 | DRG 884 ==
LOC: NEPE 13:30 → INTOOBSV 19:42 → NEDA 19:42 → NEPHCDU 22:22 → OBSVTOIN 10-23 10:56 → N04B 10-25 19:13
PROVIDERS: ADMIT Family Medicine; ATTEND Family Medicine
DX: F03.91 Unspecified dementia, unspecified severity, with behavioral disturbance (principal); N39.0 Urinary tract infection, site not specified; G20 Parkinson's disease; R41.82 Altered mental status, unspecified; E87.6 Hypokalemia; J45.909 Unspecified asthma, uncomplicated; I10 Essential (primary) hypertension; M79.7 Fibromyalgia; G40.409 Other generalized epilepsy and epileptic syndromes, not intractable, without status epilepticus; K21.9 Gastro-esophageal reflux disease without esophagitis; Z86.73 Personal history of transient ischemic attack (TIA), and cerebral infarction without residual deficits; G89.4 Chronic pain syndrome
CPT/HCPCS: 70450; 71010; 80048; 80053; 80164; 80177; 81001; 83735; 85025; 87086; 93005; 96372; 96374; 96376; C9113; G8987-GO; G8987-GP; G8988-GO; G8988-GP; J0744; J1630; J1650; J2060; J3480; P9612